=== PATIENT | male | born 1975 | race Two or more races ===

== ENCOUNTER 2021-08-22 09:17 | Emergency (ER) | payer OTHER, SELFPAY ==
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
[2021-08-22 09:22] VITALS: BP 105/67; PULSE 88; RESP 12; TEMP 36.6; O2SAT 98; BMI 23.5
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
== END 2021-08-22 11:09 | disposition home or self-care (01) ==
PROVIDERS: Emergency Provider Emergency Medicine Emergency Medical Services; PCP Internal Medicine
DX: S39.012A Strain of muscle, fascia and tendon of lower back, initial encounter (principal); V43.52XA Car driver injured in collision with other type car in traffic accident, initial encounter; Y93.9 Activity, unspecified; Y92.410 Unspecified street and highway as the place of occurrence of the external cause; Y99.9 Unspecified external cause status; Z79.899 Other long term (current) drug therapy
CPT/HCPCS: 72100; 99283

== ENCOUNTER 2022-02-14 10:32 | Outpatient (REF) | payer OTHER, SELFPAY ==
[2022-02-14 11:14] LABS: COVID-19 Test Negative (Negative); IDNOW Serial# 16C4AD1C
== END 2022-02-14 10:33 | disposition home or self-care (01) ==
LOC: HO.LAB 10:32
PROVIDERS: Visit Provider Internal Medicine
DX: Z20.822 Contact with and (suspected) exposure to COVID-19 (principal)
CPT/HCPCS: 87635; C9803

== ENCOUNTER 2022-07-08 08:43 | Inpatient (IN) | payer OTHER, SELFPAY ==
--- NOTE | ~2022-07-08 | CT_ITS ---
EXAMINATION: CT ABDOMEN AND PELVIS WITHOUT CONTRAST CLINICAL INFORMATION: Flank pain. Hematuria. Question kidney stones. COMPARISON: None TECHNIQUE: Multidetector volumetric imaging was performed from the superior aspect of the liver through the pubic symphysis. Sagittal and coronal reformatted images were obtained on the technologist's workstation. This CT examination was performed using dose optimization techniques as appropriate, variously including the following: *Automated exposure control *Adjustment of mA and/or kV according to patient size (this includes techniques or standardized protocols for targeted exams where dose is matched to indication/reason for exam; i.e. extremities or head) *Use of iterative reconstruction technique DLP: 435 mGy-cm FINDINGS: LUNG BASES: The visualized lung bases are unremarkable. LIVER, GALLBLADDER, AND BILIARY TREE: The liver is normal in size, shape, and attenuation. No focal hepatic lesion or biliary ductal dilatation is present. The gallbladder is unremarkable with no evidence of radiopaque gallstones, gallbladder wall thickening, or obvious pericholecystic inflammatory changes. PANCREAS: Unremarkable. SPLEEN: Unremarkable. ADRENAL GLANDS: Unremarkable. KIDNEYS AND URETERS: The kidneys are normal in size, shape, and attenuation. No hydronephrosis, hydroureter, or calculi seen. No perinephric stranding. BLADDER: Limited distention. Bladder appears diffusely thick-walled with mild diffuse hazy perifascicular fat stranding. GASTROINTESTINAL TRACT: Moderate to large amount of formed stool throughout the nondilated colon. A few scattered colonic diverticuli. No evidence of acute diverticulitis. No dilated bowel loops. No bowel wall thickening. Normal appendix. No ascites or free air. ABDOMINAL WALL: Tiny fat-containing umbilical hernia. 1.5 cm low-density subdermal nodule in the left lateral flank on series 3-37, likely a sebaceous or epidermal inclusion cyst. Correlate with exam. LYMPH NODES: No lymphadenopathy. VASCULAR: Normal caliber abdominal aorta. Mild vascular calcifications. PELVIC VISCERA: Prostate gland is enlarged measuring approximately 4.9 x 3.9 x 5 cm in size. OSSEOUS STRUCTURES: No acute fracture or suspicious osseous lesion. Moderate degenerative disease at L5-S1. CT/CT abdomen pelvis wo IV con IMPRESSION: 1. No radiodense urinary tract calculi. No hydronephrosis. 2. Diffusely thick-walled appearance of the urinary bladder with mild hazy perifascicular fat stranding. Correlate clinically with signs or symptoms of cystitis and with urinalysis. 3. Prostatomegaly. 4. Moderate to large amount formed stool throughout the nondilated colon. Fleischner guidelines were followed.
[2022-07-08 09:28] VITALS: BP 127/66; PULSE 110; RESP 20; TEMP 36.1; O2SAT 100; BMI 22.8
[2022-07-08 10:00] LABS: Appearance Urine Clear; Color Urine Yellow; Glucose Urine UA Negative (Negative); Leukocyte Esterase Urine Moderate (2+) (Negative); Nitrite Urine Positive (Negative); PH 5.5 (5.0-9.0); Specific Gravity - Urine >= 1.030 (1.005-1.025); UMIC TRIGGER UACC YES; Urine Blood Small (1+) (Negative); Urine Ketones Trace mg/dL (Negative); Urine Protein 100 (2+) mg/dL (Neg-Trace)
[2022-07-08 10:06] LABS: Bacteria Urine 2+ (None Seen); Hyaline Casts Urine 0-2 /LPF (0-2); Squamous Epithelial Cell Urine 0-2 /HPF (0-2); UACC Culture Trigger YES; WBC Urine >50 /HPF (0-5)
[2022-07-08 11:24] LABS: MANUAL DIFF FLAG NO
[2022-07-08 11:31] LABS: Basophils Absolute Auto 0.1 X10*3/uL (0.0-0.2); Basophils Percent Auto 0.3 % (0-2); Eosinophils Absolute Auto 0.1 X10*3/uL (0.0-0.4); Eosinophils Percent Auto 0.3 % (0-4); Hematocrit 40.6 % (42.0-52.0); Hemoglobin 13.8 g/dl (14.0-18.0); Imm Gran Abs Auto 0.06 X10*3/uL (0.00-0.03); Imm Gran Pct Auto 0.3 % (0.0-0.4); Lymphocytes Absolute Auto 1.1 X10*3/uL (1.2-4.9); Lymphocytes Percent Auto 6.2 % (20-40); Mean Corpuscular Hemoglobin 29.7 pg (27.0-33.0); Mean Corpuscular Volume 87.3 fL (80.0-98.0); Monocytes Absolute Auto 1.4 X10*3/uL (0.1-1.2); Monocytes Percent Auto 7.5 % (2-11); Neutrophils Absolute Auto 15.3 x10*3/uL (2.0-8.3); Neutrophils Percent Auto 85.4 % (45-73); Platelet Count 191 X10*3/uL (160-400); Red Blood Count 4.65 X10*6/uL (4.60-5.80); Red Cell Distribution Width 12.5 % (11.0-16.0); White Blood Count 17.9 X10*3/uL (4.8-10.8)
[2022-07-08 11:45] LABS: Anion Gap 14 (12-20); Blood Urea Nitrogen 17 mg/dL (9-16); Calcium 9.3 mg/dL (8.4-10.2); Carbon Dioxide 25 mmol/L (22-29); Chloride 100 mmol/L (96-108); Creatinine Clr Calc Pharmacy 86.9; Estimated Glomerular Filt Rate > 60; Glucose Random 98 mg/dL (60-115); Potassium 4.1 mmol/L (3.3-5.1); Sodium 135 mmol/L (135-145)
--- NOTE | 2022-07-08 12:36 | PC.NURSE ---
PT IN WAITING ROOM EATING , APPEARS MORE COMFORTABLE AT THIS TIME
--- NOTE | 2022-07-08 13:06 | ED_ITS ---
HPI - Male Genitourinary General Chief complaint: Urogenital-Male Stated complaint: fever/kidney stone/back pain Time Seen by Provider: 07/08/22 12:53 Source: patient Mode of arrival: ambulatory Limitations: no limitations History of Present Illness HPI Narrative: 47-year-old male presents to ED for RIght flank pain and mild hematuria since Monday. Patient denies any nausea vomiting, fever, chills. Patient denies any history kidney stones. Patient states no testicular pain or penile discharge. Related Data Previous Rx's Medication Instructions Recorded acetaminophen 500 mg tablet 1,000 mg PO QID PRN fever or pain 08/22/21 (Tylenol Extra Strength) #14 tabs diazepam 5 mg tablet (Valium) 5 mg PO TID PRN muscle spasm #14 08/22/21 tabs amoxicillin 875 mg-potassium 1 tab PO BID 10 days #20 tabs 03/31/22 clavulanate 125 mg tablet ibuprofen 800 mg tablet 800 mg PO Q8H PRN pain #14 tabs 03/31/22 oxycodone 5 mg capsule 5 mg PO DAILY PRN pain 5 days #5 03/31/22 caps Allergies Allergy/AdvReac Type Severity Reaction Status Date / Time No Known Allergies Allergy Unverified 06/18/20 15:15 Review of Systems Review of Systems: Flank pain with mild hematuria Yes all other systems are reviewed and are negative [facility] Past Medical History Medical History (Updated 07/08/22 @ 17:39 by DERIC Lazcano) BPH (benign prostatic hyperplasia) Complicated UTI (urinary tract infection) Sepsis Tooth infection Family History Family History (Updated 07/08/22 @ 17:24 by DERIC Cruz) Mother Multiple myeloma HTN (hypertension) Psychosis Social History Social History Alcohol intake: unknown Smoked in Last 30 Days: No Use of substances other than those prescribed or required for medical reasons: No Advance Directives: No Advance Directives Information Provided: No Physical Exam Vital Signs: Vital Signs: Last Vital Signs Temp 98.1 F 07/08/22 17:17 Pulse 92 07/08/22 17:17 Resp 18 07/08/22 17:17 BP 111/68 07/08/22 17:17 Pulse Ox 100 07/08/22 17:17 O2 Del Method 07/08/22 17:17 BMI result Body Mass Index 22.8 Const: General: cooperative, healthy appearing, comfortable, no acute distress, well developed, alert and awake Orientation/consciousness: oriented to person, oriented to place, oriented to time and patient oriented x3 HEENT: Head: Yes normal to inspection, Yes No palpable skull fracture present, Yes normocephalic, Yes atraumatic and No abrasion Eyes: General: appearance normal, both eyes and all related structures Neck: Neck: Yes normal visual inspection, Yes full ROM, Yes no lymphadenopathy, Yes no meningeal signs, Yes trachea midline, Yes supple, No anterior neck swelling and No tender Chest: Chest palpation & inspection: normal inspection of the chest and normal palpation of entire chest wall Resp: Effort & Inspection: normal respiratory effort and able to speak in complete sentences Auscultation: clear to auscultation bilaterally Cardio: Jugular venous distension: no JVD Heart sounds: S1 normal heart sound present and S2 normal heart sound present GI: Inspection: Yes normal to inspection and No abdominal wall ecchymosis Palpation (GI): Soft to palpation, not firm, nontender, no guarding and not rigid : General: Yes CVA tenderness (Right) and Yes no CVA tenderness Back/Spine/Pelvis: Back: no CVA tenderness, CVA tenderness (Right) and No back tenderness Skin: General skin exam: no rashes or lesions noted and elasticity normal Neuro: General: oriented to person, oriented to place, oriented to time, patient oriented x3, gait normal, tone normal, moves all extremities and no meningeal signs Extrem: General: Yes normal to inspection and Yes full ROM Psych: Appearance: grossly normal, well kempt and not disheveled Course Course Course Narrative: Labs ordered. Reevaluation(s) Reevaluation #1: Labs shows white blood cell count [id number] with positive UA. Antibiotics and fluids ordered. Patient is sent for abdominal CT scan to rule out kidney stones Time: 13:30 Reevaluation #2: Patient admits to hospital for pyelonephritis and UTI. White blood cell count of 17,000 with tachycardia. Lactic negative Time: 17:38 MDM - Male Genitourinary MDM Narrative Medical decision making narrative: pylonephritis. UTI Lab Data Result diagrams: 07/08/22 11:21 07/08/22 11:21 Labs: Lab Results 07/08/22 07/08/22 07/08/22 Range/Units 09:47 11:21 11:21 WBC 17.9 H (4.8-10.8) X10*3/uL RBC 4.65 (4.60-5.80) X10*6/uL Hgb 13.8 L (14.0-18.0) g/dl Hct 40.6 L (42.0-52.0) % MCV 87.3 (80.0-98.0) fL MCH 29.7 (27.0-33.0) pg MCHC 34.0 (31.0-36.0) g/dl RDW 12.5 (11.0-16.0) % Plt Count 191 (160-400) X10*3/uL MPV 11.0 (9.4-12.4) fL Immature Gran % (Auto) 0.3 (0.0-0.4) % Neut % (Auto) 85.4 H (45-73) % Lymph % (Auto) 6.2 L (20-40) % George % (Auto) 7.5 (2-11) % Eos % (Auto) 0.3 (0-4) % Baso % (Auto) 0.3 (0-2) % Lymph # (Auto) 1.1 L (1.2-4.9) X10*3/uL George # (Auto) 1.4 H (0.1-1.2) X10*3/uL Eos # (Auto) 0.1 (0.0-0.4) X10*3/uL Baso # (Auto) 0.1 (0.0-0.2) X10*3/uL Abs Immat Gran (auto) 0.06 H (0.00-0.03) X10*3/uL Absolute Neuts (auto) 15.3 H (2.0-8.3) x10*3/uL Absolute Nucleated RBC 0.000 (0.0-0.012) X10*3/uL Nucleated RBC % (auto) 0.0 (0.0-0.2) /100WBC Sodium 135 (135-145) mmol/L Potassium 4.1 (3.3-5.1) mmol/L Chloride 100 (96-108) mmol/L Carbon Dioxide 25 (22-29) mmol/L Anion Gap 14 (12-20) BUN 17 H (9-16) mg/dL Creatinine 1.00 (0.5-1.4) mg/dL Estim Creat Clear Calc 86.9 Estimated GFR > 60 Random Glucose 98 (60-115) mg/dL Lactic Acid (0.5-2.0) mmol/L Calcium 9.3 (8.4-10.2) mg/dL Urine Color Yellow Urine Appearance Clear Urine pH 5.5 (5.0-9.0) Ur Specific [place] >= 1.030 H (1.005-1.025) Urine Protein 100 (2+) H (Neg-Trace) mg/dL Urine Glucose (UA) Negative (Negative) mg/dL Urine Ketones Trace (Negative) mg/dL Urine Blood Small (1+) H (Negative) Urine Nitrite Positive H (Negative) Ur Leukocyte Esterase Moderate (2+) H (Negative) Urine RBC 3-5 H (0-2) /HPF Urine WBC >50 H (0-5) /HPF Ur Squamous Epith Cells 0-2 (0-2) /HPF Urine Bacteria 2+ (None Seen) Hyaline Casts 0-2 (0-2) /LPF COVID-19 ([facility]) (Negative) COVID-19 Clin Com 07/08/22 07/08/22 Range/Units 13:26 13:26 WBC (4.8-10.8) X10*3/uL RBC (4.60-5.80) X10*6/uL Hgb (14.0-18.0) g/dl Hct (42.0-52.0) % MCV (80.0-98.0) fL MCH (27.0-33.0) pg MCHC (31.0-36.0) g/dl RDW (11.0-16.0) % Plt Count (160-400) X10*3/uL MPV (9.4-12.4) fL Immature Gran % (Auto) (0.0-0.4) % Neut % (Auto) (45-73) % Lymph % (Auto) (20-40) % George % (Auto) (2-11) % Eos % (Auto) (0-4) % Baso % (Auto) (0-2) % Lymph # (Auto) (1.2-4.9) X10*3/uL George # (Auto) (0.1-1.2) X10*3/uL Eos # (Auto) (0.0-0.4) X10*3/uL Baso # (Auto) (0.0-0.2) X10*3/uL Abs Immat Gran (auto) (0.00-0.03) X10*3/uL Absolute Neuts (auto) (2.0-8.3) x10*3/uL Absolute Nucleated RBC (0.0-0.012) X10*3/uL Nucleated RBC % (auto) (0.0-0.2) /100WBC Sodium (135-145) mmol/L Potassium (3.3-5.1) mmol/L Chloride (96-108) mmol/L Carbon Dioxide (22-29) mmol/L Anion Gap (12-20) BUN (9-16) mg/dL Creatinine (0.5-1.4) mg/dL Estim Creat Clear Calc Estimated GFR Random Glucose (60-115) mg/dL Lactic Acid 1.0 (0.5-2.0) mmol/L Calcium (8.4-10.2) mg/dL Urine Color Urine Appearance Urine pH (5.0-9.0) Ur Specific [place] (1.005-1.025) Urine Protein (Neg-Trace) mg/dL Urine Glucose (UA) (Negative) mg/dL Urine Ketones (Negative) mg/dL Urine Blood (Negative) Urine Nitrite (Negative) Ur Leukocyte Esterase (Negative) Urine RBC (0-2) /HPF Urine WBC (0-5) /HPF Ur Squamous Epith Cells (0-2) /HPF Urine Bacteria (None Seen) Hyaline Casts (0-2) /LPF COVID-19 ([facility]) Negative (Negative) COVID-19 Clin Com See Note Discharge Plan Discharge Clinical Impression: Complicated UTI (urinary tract infection) Patient Disposition: Admitted As Inpatient 1 tab PO BID 10 Days Qty: 20 0RF oxycodone 5 mg capsule 5 mg PO DAILY PRN (Reason: pain) 5 Days Qty: 5 0RF Rx Instructions: Partial Fill upon patient request.
[2022-07-08 13:31] VITALS: BP 113/68; PULSE 99; RESP 18; TEMP 36.7; O2SAT 100
[2022-07-08] MEDS: 0.9 % Sodium Chloride 1,000 ML 999 ML IV (13:33)
[2022-07-08] MEDS: Ketorolac Tromethamine 30 MG/ML VIAL IVPUSH (13:33)
[2022-07-08] MEDS: cefTRIAXone sodium 1 GM in 0.9 % Sodium Chloride 50 ML IV (13:35)
[2022-07-08 13:46] LABS: COVID-19 Test Negative (Negative)
--- NOTE | 2022-07-08 17:16 | PM.IMHP ---
History of Present Illness Date of Service: 07/08/22 Attending physician on admission: Fe Gary Chief Complaint: dysuria, flank pain [age] year old male with history of recent dental abscess treated with Augmentin who is a 1/2 ppd cigarette smoker presents to the ED earlier today complaining of bilateral low back pain, dysuria, hematuria, nocturia, and decreased urinary output ongoing for 2 days. He states he has never had similar symptoms. Denies any history of kidney stones. Denies any unsafe sexual encounters recently. He states symptoms have somewhat improved yesterday and today and urine is now clear. He denies having had any fevers, chills, nausea, vomiting. Denies perineal pain. In the ED, white blood cell count 17.9. UA with 2+ leukocytes, nitrate positive, 2+ bacteria, 1+ blood. Lactic acid 1.0. Renal fx and electrolytes stable. Afebrile but tachycardic to 110. Vital signs otherwise stable. CT of the abdomen/pelvis shows thickening of the bladder wall with stranding suggestive of cystitis with prostatomegaly. No evidence of stones or hydronephrosis. Ct also shows large stool burden. Patient reports no BM several days. No abdominal pain. Patient has received 1 L bolus normal saline, IV ceftriaxone, and pain meds. To be admitted for UTI with sepsis. Review of Systems Review of Systems: General: No fevers, malaise, unintentional weight loss Cardiovascular: No chest pain, palpitations, or leg edema Respiratory: No shortness of breath, wheezing, cough GI: +constipation. No abdominal pain, nausea, vomiting, diarrhea, melena, hematochezia Gu: +dysuria, +hematuria, +urgency, +decreased urinary output, +nocturia MSK: +b/l low back pain Neuro: No headaches, weakness, paresthesias Skin: No rashes or lesions [facility] Medical History (Updated 07/08/22 @ 17:39 by DERIC Lazcano) BPH (benign prostatic hyperplasia) Complicated UTI (urinary tract infection) Sepsis Tooth infection Family History (Updated 07/08/22 @ 17:24 by DERIC Cruz) Mother Multiple myeloma HTN (hypertension) Psychosis Social History Alcohol intake: unknown Smoked in Last 30 Days: No Use of substances other than those prescribed or required for medical reasons: No Advance Directives: No Advance Directives Information Provided: No Meds Allergies Allergy/AdvReac Type Severity Reaction Status Date / Time No Known Allergies Allergy Unverified 06/18/20 15:15 Active Medications: Current Medications Acetaminophen (Acetaminophen 325 Mg Tablet) 650 mg PO Q6H PRN PRN Reason: Pain, Mild (Pain Scale 1-3) Enoxaparin Sodium (Enoxaparin Sodium 40 Mg/0.4 Ml Syringe) 40 mg SUBCUT Q24H ALIZE Hydromorphone HCl (Hydromorphone Hcl 1 Mg/Ml Syringe) 0.5 mg IVPUSH Q4H PRN; Protocol PRN Reason: Pain, Severe (Pain Scale 7-10) Ceftriaxone Sodium 1 gm/ (Sodium Chloride) 50 mls @ 100 mls/hr IV Q24H ALIZE Oxycodone HCl (Oxycodone Hcl Immed Release 5 Mg Tablet) 5 mg PO Q6H PRN PRN Reason: Pain, Moderate (Pain Scale 4-6 Sodium Chloride (0.9 % Sodium Chloride Flush 3 Ml Syringe) 3 ml IVFLUSH QSHIFT ALIZE Physical Exam Vital Signs and Narrative: Vital Signs: Last Vital Signs Temp 98.1 F 07/08/22 13:31 Pulse 99 07/08/22 13:31 Resp 18 07/08/22 13:31 BP 113/68 07/08/22 13:31 Pulse Ox 100 07/08/22 13:31 O2 Del Method 07/08/22 13:31 BMI result Body Mass Index 22.8 Constitutional - Awake and Alert, No apparent distress Eyes - PERRLA, EOMI Cardiovascular - S1S2, RRR, No edema Respiratory - Normal lung expansion, Normal respiratory effort, No respiratory distress, CTA bilaterally Gastrointestinal - NT / ND; +BS; No rebound or guarding Rectal: No external hemorrhoids. No palpable internal hemorrhoids. Rectal tone appropriate. Symmetric 2+ enlargement prostate without tenderness Extremities - no calf tenderness bilaterally, no swelling Back: No CVA tenderness. No midline or paraspinal ttp Skin - Warm/Dry Neurological - Alert & oriented x3, Sensory or motor in tact Psychological - Appropriate affect Results Labs CBC and Chem 7: 07/08/22 11:21 07/08/22 11:21 Labs: Laboratory Results - last 24 hr 07/08/22 07/08/22 07/08/22 09:47 11:21 11:21 MCV 87.3 MCH 29.7 MCHC 34.0 RDW 12.5 Plt Count 191 MPV 11.0 Immature Gran % (Auto) 0.3 Neut % (Auto) 85.4 H Lymph % (Auto) 6.2 L [place] % (Auto) 7.5 Eos % (Auto) 0.3 Baso % (Auto) 0.3 Lymph # (Auto) 1.1 L [place] # (Auto) 1.4 H Eos # (Auto) 0.1 Baso # (Auto) 0.1 Abs Immat Gran (auto) 0.06 H Absolute Neuts (auto) 15.3 H Absolute Nucleated RBC 0.000 Nucleated RBC % (auto) 0.0 Anion Gap 14 Estim Creat Clear Calc 86.9 Estimated GFR > 60 Random Glucose 98 Lactic Acid Calcium 9.3 Urine Color Yellow Urine Appearance Clear Urine pH 5.5 Ur Specific [place] >= 1.030 H Urine Protein 100 (2+) H Urine Glucose (UA) Negative Urine Ketones Trace Urine Blood Small (1+) H Urine Nitrite Positive H Ur Leukocyte Esterase Moderate (2+) H Urine RBC 3-5 H Urine WBC >50 H Ur Squamous Epith Cells 0-2 Urine Bacteria 2+ Hyaline Casts 0-2 COVID-19 ([facility]) COVID-19 Clin Com 07/08/22 07/08/22 13:26 13:26 MCV MCH MCHC RDW Plt Count MPV Immature Gran % (Auto) Neut % (Auto) Lymph % (Auto) [place] % (Auto) Eos % (Auto) Baso % (Auto) Lymph # (Auto) [place] # (Auto) Eos # (Auto) Baso # (Auto) Abs Immat Gran (auto) Absolute Neuts (auto) Absolute Nucleated RBC Nucleated RBC % (auto) Anion Gap Estim Creat Clear Calc Estimated GFR Random Glucose Lactic Acid 1.0 Calcium Urine Color Urine Appearance Urine pH Ur Specific [place] Urine Protein Urine Glucose (UA) Urine Ketones Urine Blood Urine Nitrite Ur Leukocyte Esterase Urine RBC Urine WBC Ur Squamous Epith Cells Urine Bacteria Hyaline Casts COVID-19 ([facility]) Negative COVID-19 Clin Com See Note Imaging Radiologist's Impressions: Impressions Abdomen/Pelvis CT 07/08/22 13:45 IMPRESSION: 1. No radiodense urinary tract calculi. No hydronephrosis. 2. Diffusely thick-walled appearance of the urinary bladder with mild hazy perifascicular fat stranding. Correlate clinically with signs or symptoms of cystitis and with urinalysis. 3. Prostatomegaly. 4. Moderate to large amount formed stool throughout the nondilated colon. Fleischner guidelines were followed. Assessment and Plan (1) Complicated UTI (urinary tract infection): Status: Acute (2) Sepsis: Status: Acute Plan [age] year old male with history of recent dental abscess treated with Augmentin who is a 1/2 ppd cigarette smoker admitted for complicated UTI with sepsis. 1-Sepsis secondary to UTI -Tachycardic to 110, leukocytosis 17.9. Lactic acid normal. No severe sepsis -Received 1L NS bolus and 1g ceftriaxone in ED -Urine culture and blood cultures pending -Follow CBC 2-Complicated UTI -UA with 2+leuks, nitrite+, 1+blood, 2+bacteria. Urine culture pending -CT showing thickened bladder wall with fat stranding suggestive cystitis and prostatamegaly. Low suspicion for prostatitis given history and exam -Pt afebrile. Sepsis as above -Treat empirically with ceftriaxone -Follow CBC -Regular diet 3-BPH with LUTS -Start flomax 0.4mg daily -Follow up outpt with pcp, possibly urology 4-Nicotine dependence -1/2 ppd cigarettes -NRT ordered DVT prophylaxis- lovenox Full code Pt requires inpt stay at least 2 midnights due to complicated UTI with sepsis requiring IV abx and further monitoring. Quality Stroke Does the patient have a stroke diagnosis?: No VTE Prior VTE?: No VTE Risk Level:: Medical - moderate - high VTE Device Contraindication: Treatment Not Indicated VTE Drug Contraindication: N/A - Med Ordered
[2022-07-08 17:17] VITALS: BP 111/68; PULSE 92; RESP 18; TEMP 36.7; O2SAT 100
--- NOTE | 2022-07-08 17:28 | PC.NURSE ---
Assumed care of patient at this time.
--- NOTE | 2022-07-08 18:05 | PHA.MEDREC ---
med rec complete, patient not on any medications Pharmacy Consult ? Medication Reconciliation Pharmacy has completed the medication reconciliation.
[2022-07-08] MEDS: Enoxaparin Sodium 40 MG/0.4 ML SYRINGE SUBCUT (21:40)
[2022-07-08] MEDS: 0.9 % Sodium Chloride Flush 3 ML SYRINGE IVFLUSH (21:40)
[2022-07-08] MEDS: Docusate Sodium 100 MG CAPSULE PO (21:40)
[2022-07-08 23:36] VITALS: BP 111/62; PULSE 82; RESP 16; TEMP 36.7; O2SAT 99
[2022-07-09 04:00] VITALS: BP 97/63; PULSE 75; RESP 18; TEMP 36.4; O2SAT 100
[2022-07-09 06:57] LABS: MANUAL DIFF FLAG NO
[2022-07-09 07:13] LABS: Basophils Absolute Auto 0.1 X10*3/uL (0.0-0.2); Basophils Percent Auto 0.5 % (0-2); Eosinophils Absolute Auto 0.2 X10*3/uL (0.0-0.4); Eosinophils Percent Auto 1.6 % (0-4); Hematocrit 38.2 % (42.0-52.0); Hemoglobin 13.3 g/dl (14.0-18.0); Imm Gran Abs Auto 0.03 X10*3/uL (0.00-0.03); Imm Gran Pct Auto 0.3 % (0.0-0.4); Lymphocytes Absolute Auto 1.2 X10*3/uL (1.2-4.9); Lymphocytes Percent Auto 12.2 % (20-40); Mean Corpuscular HGB Conc 34.8 g/dl (31.0-36.0); Mean Corpuscular Hemoglobin 30.2 pg (27.0-33.0); Mean Corpuscular Volume 86.6 fL (80.0-98.0); Mean Platelet Volume 11.8 fL (9.4-12.4); Monocytes Percent Auto 9.9 % (2-11); Neutrophils Absolute Auto 7.4 x10*3/uL (2.0-8.3); Neutrophils Percent Auto 75.5 % (45-73); Platelet Count 168 X10*3/uL (160-400); Red Blood Count 4.41 X10*6/uL (4.60-5.80); Red Cell Distribution Width 12.5 % (11.0-16.0); White Blood Count 9.8 X10*3/uL (4.8-10.8)
[2022-07-09 07:45] VITALS: BP 105/72; PULSE 73; RESP 14; TEMP 36.1; O2SAT 99
[2022-07-09] MEDS: Docusate Sodium 100 MG CAPSULE PO (09:12)
[2022-07-09] MEDS: Tamsulosin HCL 0.4 MG CAPSULE PO (09:12)
[2022-07-09] MEDS: 0.9 % Sodium Chloride Flush 3 ML SYRINGE IVFLUSH (09:13)
--- NOTE | 2022-07-09 10:08 | MHC.CM.PN ---
Patient lives alone in an apartment and home no services is the goal. Patient has received no Covid vax and his PCP is Dr. Joni Fallon. Patient's Daughter is supportive.
[2022-07-09 12:32] VITALS: BP 110/65; PULSE 83; RESP 14; TEMP 36.3; O2SAT 99
[2022-07-09] MEDS: cefTRIAXone sodium 1 GM in 0.9 % Sodium Chloride 50 ML IV (13:08)
--- NOTE | 2022-07-09 14:07 | PM.DS ---
DS: Providers Provider Date of Service: 07/10/22 Date of admission: 07/08/22 17:13 Primary care physician: Joni Fallon MD DS: Diagnosis Discharge Diagnosis (1) Complicated UTI (urinary tract infection): Status: Acute (2) Sepsis: Status: Acute DS: Summary Hospital Course Hospital Course: Admission note HPI [age] year old male with history of recent dental abscess treated with Augmentin who is a 1/2 ppd cigarette smoker presents to the ED earlier today complaining of bilateral low back pain, dysuria, hematuria, nocturia, and decreased urinary output ongoing for 2 days.? He states he has never had similar symptoms.? Denies any history of kidney stones.? Denies any unsafe sexual encounters recently.? He states symptoms have somewhat improved yesterday and today and urine is now clear.? He denies having had any fevers, chills, nausea, vomiting.? Denies perineal pain.? In the ED, white blood cell count 17.9.? UA with 2+ leukocytes, nitrate positive, 2+ bacteria, 1+ blood.? Lactic acid 1.0. Renal fx and electrolytes stable. Afebrile but tachycardic to 110.? Vital signs otherwise stable.? CT of the abdomen/pelvis shows thickening of the bladder wall with stranding suggestive of cystitis with prostatomegaly.? No evidence of stones or hydronephrosis. Ct also shows large stool burden. Patient reports no BM several days. No abdominal pain.? Patient has received 1 L bolus normal saline, IV ceftriaxone, and pain meds.? To be admitted for UTI with sepsis. Hospital course The patient was admitted for treatment of sepsis. CT scan was negative for any stones. Showed evidence of stranding of bladder wall suggestive of cystitis and enlarged prostate. Treated with IV antibiotic of ceftriaxone with good response as WBCs improved back to normal, pain resolved. Urine culture growing Gram-negative rods. Blood cultures remain negative after 24 hours. The patient as to be discharged home as he feels much better today. Will let him go and follow his blood cultures to be finalized with plan to finish total of 10 days of antibiotic of Ceftin and to follow-up with Urology as outpatient. Start tamsulosin for enlarged prostate To be discharged home on Ceftin to finish total antibiotic of 10 days To follow with Urology as outpatient. Referral made. Please call for appointment. Time Spent with Patient Time attestation: Total time spent providing and/or coordinating discharge services: Discharge coordination time: Greater than 30 minutes Quality: Safe Use of Opioids Does Pt have an Active Cancer Diagnosis on the Problem List?: No Quality: Stroke Does the patient have a stroke diagnosis?: No Physical Exam Vital Signs: Vital Signs: Last Vital Signs Temp 97.4 F 07/09/22 12:32 Pulse 83 07/09/22 12:32 Resp 14 07/09/22 12:32 BP 110/65 07/09/22 12:32 Pulse Ox 99 07/09/22 12:32 O2 Del Method 07/09/22 12:32 BMI result Body Mass Index 22.8 Const: Other: Constitutional : Alert, oriented, not in distress Neck : Normal inspection, Supple Cardiovascular : RRR, no JVP, no lower extremity edema Respiratory : fair bilateral air entry, no crackles, wheezes or rhonchi Gastrointestinal: soft, lax, Normal bowel sounds, Non tender Skin : Warm, Dry Neurological : Alert & oriented x3, No focal deficit DS: Data Data Completed and Pending Labs on day of discharge: Laboratory Results - last 24 hr 07/09/22 06:25 WBC 9.8 RBC 4.41 L Hgb 13.3 L Hct 38.2 L MCV 86.6 MCH 30.2 MCHC 34.8 RDW 12.5 Plt Count 168 MPV 11.8 Immature Gran % (Auto) 0.3 Neut % (Auto) 75.5 H Lymph % (Auto) 12.2 L [place] % (Auto) 9.9 Eos % (Auto) 1.6 Baso % (Auto) 0.5 Lymph # (Auto) 1.2 [place] # (Auto) 1.0 Eos # (Auto) 0.2 Baso # (Auto) 0.1 Abs Immat Gran (auto) 0.03 Absolute Neuts (auto) 7.4 Absolute Nucleated RBC 0.000 Nucleated RBC % (auto) 0.0 Preliminary micro results at discharge 07/08/22 Unknown Urine Culture - Preliminary Urine clean catch - Urine mantilla top Gram negative lew Imaging CT scan - abdomen: Radiologist's impression: ITS Impressions Abdomen/Pelvis CT 07/08/22 13:45 IMPRESSION: 1. No radiodense urinary tract calculi. No hydronephrosis. 2. Diffusely thick-walled appearance of the urinary bladder with mild hazy perifascicular fat stranding. Correlate clinically with signs or symptoms of cystitis and with urinalysis. 3. Prostatomegaly. 4. Moderate to large amount formed stool throughout the nondilated colon. Fleischner guidelines were followed. Discharge Plan Discharge Anticipated Discharge Date/Time: 07/09/22 14:00 Patient Disposition: Home, Self-Care Discharge Diagnosis: Sepsis, urinary tract infection Referrals: Gloria Hicks MD [Physician] - 1 Month (Acute Cystitis, enlarged prostate with UTI for Krystyna recommendations) Joni Fallon MD [Primary Care Provider] - 1 Week Discharge Medications: New cefuroxime axetil 500 mg tablet 500 mg PO BID Qty: 16 0RF tamsulosin 0.4 mg Capsule 0.4 mg PO DAILY 30 Days Qty: 30 0RF Discharge Orders: Discharge Order (Routine); Ordered 07/09/22 Ordered By: Fe Gary Diet: Advance to usual diet Activity on Discharge: As tolerated Stand Alone Forms: Patient Portal Discharge page Care Plan Goals: Read below Health Concerns: Read below Plan of Treatment: Read below Assessment: You were admitted to the hospital for evaluation of urinary tract infection. Treated with IV antibiotic. Urine culture growing bacteria, still pending final sensitivity. Start tamsulosin for enlarged prostate To be discharged home on Ceftin to finish total antibiotic of 10 days To follow with Urology as outpatient. Referral made. Please call for appointment. Discharge Date/Time: 07/09/22 16:50
--- NOTE | 2022-07-09 14:33 | MHC.CM.PN ---
Patient has been medically cleared for dc to home today, self care.
[2022-07-09 14:59] LABS: Prostate Specific Antigen 15.65 ng/mL (<0.05-4.0)
== END 2022-07-09 16:50 | disposition home or self-care (01) | DRG 872 ==
LOC: HO.ED 17:39 → HO.EDOVER 18:11 → HO.IMC 07-09 15:51
PROVIDERS: Physician Assistant; Admitting Provider Physician Assistant; Emergency Provider Emergency Medicine Emergency Medical Services; PCP Family Medicine; Visit Provider Student in an Organized Health Care Education/Training Program
DX: A41.9 Sepsis, unspecified organism (principal); N30.91 Cystitis, unspecified with hematuria; N40.0 Benign prostatic hyperplasia without lower urinary tract symptoms; Z20.822 Contact with and (suspected) exposure to COVID-19; F17.210 Nicotine dependence, cigarettes, uncomplicated; Z71.6 Tobacco abuse counseling
CPT/HCPCS: 36415; 74176; 80048; 81001; 81003; 83605; 84153; 85025; 87040; 87086; 87088; 87186; 87635; 96361; 96374; 96375; 99285; J0696; J1650; J1885

== ENCOUNTER 2022-07-28 16:36 | Inpatient (IN) | payer OTHER, SELFPAY ==
--- NOTE | ~2022-07-28 | US_ITS ---
EXAMINATION: US SCROTUM CLINICAL INFORMATION: Testicular swelling on the right. COMPARISON: None TECHNIQUE: A sonogram of the scrotum was performed assessing mantilla-scale appearance and color Doppler flow. Spectral Doppler analysis of the arterial and venous flow were performed in the testes bilaterally. FINDINGS: The right testicle is measuring 3.6 x 2.9 x 3 cm. Volume 17 mL. Left testicle is measuring 4.7 x 2.3 x 3 cm. Volume 17 mL. Importantly the testicles are within normal limits. Echogenicity is felt to be equal bilaterally and there is arterial and venous flow. Findings suggest a few small epididymal head cysts on the right. Epididymis is mildly prominent on the right On the left excrescence off the testicle could represent an appendix testis. Outpatient Program Coordinator notes a probable right inguinal hernia. Orifice measuring 1.7 cm. US/US scrotum doppler IMPRESSION: Importantly the testicles are felt to be within there is a small hydrocele on the right and the inserting machine operator demonstrates findings which suggest a right inguinal herniation of omental fat. Correlation recommended clinically. Recommend surgical consultation. Given the appearance element of bowel involvement could not be excluded but this may be a loculated hydrocele on the right The epididymis on the right is mildly prominent. An element of epididymitis cannot be excluded.
--- NOTE | ~2022-07-28 | US_ITS ---
EXAMINATION: US SCROTUM CLINICAL INFORMATION: Testicular swelling on the right. COMPARISON: None TECHNIQUE: A sonogram of the scrotum was performed assessing mantilla-scale appearance and color Doppler flow. Spectral Doppler analysis of the arterial and venous flow were performed in the testes bilaterally. FINDINGS: The right testicle is measuring 3.6 x 2.9 x 3 cm. Volume 17 mL. Left testicle is measuring 4.7 x 2.3 x 3 cm. Volume 17 mL. Importantly the testicles are within normal limits. Echogenicity is felt to be equal bilaterally and there is arterial and venous flow. Findings suggest a few small epididymal head cysts on the right. Epididymis is mildly prominent on the right On the left excrescence off the testicle could represent an appendix testis. Cnc Maintenance Mechanic notes a probable right inguinal hernia. Orifice measuring 1.7 cm. US/US scrotum IMPRESSION: Importantly the testicles are felt to be within there is a small hydrocele on the right and the manager cosmetics demonstrates findings which suggest a right inguinal herniation of omental fat. Correlation recommended clinically. Recommend surgical consultation. Given the appearance element of bowel involvement could not be excluded but this may be a loculated hydrocele on the right The epididymis on the right is mildly prominent. An element of epididymitis cannot be excluded.
--- NOTE | ~2022-07-28 | CT_ITS ---
EXAMINATION: CT PELVIS WITHOUT CONTRAST CLINICAL INFORMATION: Rule out omental herniation in the right side of scrotum, pain COMPARISON: Scrotal ultrasound from earlier in the same day, CT abdomen and pelvis 07/08/2022 TECHNIQUE: Helical scanning was performed with submillimeter collimation through the pelvis. Sagittal and coronal multiplanar 2-D reconstructions were obtained. This CT examination was performed using dose optimization techniques as appropriate, variously including the following: *Automated exposure control *Adjustment of mA and/or kV according to patient size (this includes techniques or standardized protocols for targeted exams where dose is matched to indication/reason for exam; i.e. extremities or head) *Use of iterative reconstruction technique DLP: 359 mGy-cm FINDINGS: There is stranding along the right inguinal canal. There is no inguinal hernia. Heterogeneous hydroceles within the scrotum There is no enlarged lymphadenopathy by CT criteria. The bladder is relatively decompressed but demonstrates diffuse wall thickening, similar to the prior CT. Loops of bowel in the pelvis are unremarkable. Degenerative disc disease at L5-S1. CT/CT pelvis wo IV con IMPRESSION: No inguinal hernia. Moderate, heterogeneous hydroceles with stranding in the right inguinal canal.
[2022-07-28 16:38] VITALS: BP 107/70; PULSE 115; RESP 18; TEMP 37.2; O2SAT 99; BMI 24.3
[2022-07-28 16:59] LABS: Hematocrit 37.2 % (42.0-52.0); Hemoglobin 12.8 g/dl (14.0-18.0); Mean Corpuscular HGB Conc 34.4 g/dl (31.0-36.0); Mean Corpuscular Hemoglobin 30.5 pg (27.0-33.0); Mean Corpuscular Volume 88.6 fL (80.0-98.0); Mean Platelet Volume 10.9 fL (9.4-12.4); Platelet Count 226 X10*3/uL (160-400); Red Cell Distribution Width 12.6 % (11.0-16.0)
[2022-07-28 17:00] LABS: WBC ABN SCTR FOR CBC 1
[2022-07-28 17:00] LABS: Appearance Urine Clear; Color Urine Yellow; Glucose Urine UA Negative (Negative); Leukocyte Esterase Urine Trace (Negative); Nitrite Urine Negative (Negative); Specific Gravity - Urine <= 1.005 (1.005-1.025); UMIC TRIGGER UACC YES; Urine Blood Small (1+) (Negative); Urine Ketones Negative (Negative); Urine Protein Negative (Neg-Trace)
[2022-07-28 17:11] LABS: Bacteria Urine None Seen (None Seen); Hyaline Casts Urine 0-2 /LPF (0-2); RBC Urine 0-2 /HPF (0-2); Squamous Epithelial Cell Urine 0-2 /HPF (0-2); WBC Urine 0-5 /HPF (0-5)
[2022-07-28 17:12] LABS: COVID-19 Test Negative (Negative)
[2022-07-28 17:15] LABS: Alanine Aminotransferase 23 U/L (0-40); Albumin Level 3.9 g/dL (3.5-5.0); Alkaline Phosphatase 89 U/L (39-117); Anion Gap 15 (12-20); Aspartate Amino Transferase 31 U/L (5-37); Bilirubin Total 0.6 mg/dL (0.0-1.0); Blood Urea Nitrogen 15 mg/dL (9-16); Calcium 9.2 mg/dL (8.4-10.2); Carbon Dioxide 25 mmol/L (22-29); Chloride 101 mmol/L (96-108); Creatinine Clr Calc Pharmacy 86.1; Estimated Glomerular Filt Rate > 60; Glucose Random 107 mg/dL (60-115); Potassium 4.1 mmol/L (3.3-5.1); Sodium 137 mmol/L (135-145)
[2022-07-28 17:33] LABS: White Blood Count 23.2 X10*3/uL (4.8-10.8)
[2022-07-28 17:45] LABS: Band Neutrophils Percent 2 % (3-5); Eosinophils Absolute Manual 0.2 X10*3/uL (0.0-0.4); Eosinophils Percent Manual 1 % (0-4); Lymphocytes Absolute Manual 0.9 X10*3/uL (1.2-4.9); Lymphocytes Percent Manual 4 % (20-40); Monocytes Absolute Manual 1.9 X10*3/uL (0.1-1.2); Monocytes Percent Manual 8 % (2-11); Neutrophils Absolute Manual 20.2 X10*3/uL (2.0-8.3); Neutrophils Percent Manual 85 % (45-73)
[2022-07-28 17:46] LABS: Microcytosis 1+ (5-14) /OIF; Platelet Estimate SLIGHTLY DECREASED (NORMAL); Platelet Morphology Comment NORMAL; RBC Morphology NOTED
[2022-07-28 17:47] LABS: Burr Cells 1+ (0-2) /OIF; Dohle Bodies PRESENT; Hypochromasia 1+ (5-14) /OIF; Toxic Vacuolation PRESENT
--- NOTE | 2022-07-28 19:06 | ED_ITS ---
HPI - Male Genitourinary General Chief complaint: Urogenital-Male Stated complaint: possible uti Time Seen by Provider: 07/28/22 18:17 Source: patient Mode of arrival: ambulatory Limitations: no limitations History of Present Illness HPI Narrative: patient comes to the emergency room complaining of dysuria and right testicular pain. Patient was diagnosed with a UTI on July 08, sent home with antibiotics. Patient states that she initially improved. But then shortly after he started having symptoms over again. He went to urgent care yesterday, he was prescribed but it seems to be ciprofloxacin. Patient states that the dysuria has gradually gotten worse, now having intermittent hematuria, denies flank pain, complaining of suprapubic tenderness and what worries him the most, it is the right testicular pain and swelling. Related Data Previous Rx's Medication Instructions Recorded tamsulosin 0.4 mg capsule 0.4 mg PO DAILY 30 days #30 caps 07/27/22 Allergies Allergy/AdvReac Type Severity Reaction Status Date / Time No Known Allergies Allergy Unverified 07/27/22 12:50 Review of Systems Review of Systems: Constitutional : No Weight loss, No Fever, No Chills, No Night Sweats, No Fatigue, No Malaise ENT/Mouth : No Hearing loss, No Ear Pain, No Nasal Congestion, No Sinus Pain, No Hoarseness, No sore throat, No Rhinorrhea, No Swallowing Difficulty Eyes: No Eye Pain, No Swelling, No Redness, No Foreign Body, No Discharge, No Vision Changes Cardiovascular : No Chest Pain, No SOB, No Dyspnea on Exertion, No Orthopnea, No Edema, No Palpitations Respiratory : No Cough, No Sputum, No Wheezing, No Smoke Exposure, No Dyspnea Gastrointestinal : No Nausea, No Vomiting, No Diarrhea, No Constipation, No abdominal Pain, No Hematochezia, No Melena Genitourinary : no irregular bleeding, Complaining of dysuria, hematuria, suprapubic pain, complaining of right testicular pain and swelling, denies penile discharge No Urinary Incontinence, No Urgency, No Flank Pain, No Urinary Flow Changes, No Hesitancy Musculoskeletal : No joint pain, No Myalgias, No Joint Swelling Skin : No Skin Lesions, No rash Neuro : No Weakness, No Numbness, No Paresthesias, No Loss of Consciousness, No Dizziness, No Headache Psych : No Anxiety/Panic, No Depression, No SI/HI/AH/VH, No Social Issues, Heme/Lymph: No Bruising, No Bleeding,No Lymphadenopathy Endocrine : No Polyuria, No Polydipsia, No Temperature Intolerance [facility] Past Medical History Medical History BPH (benign prostatic hyperplasia) Complicated UTI (urinary tract infection) Sepsis Tooth infection Family History Family History (Updated 07/08/22 @ 17:24 by DERIC Cruz) Mother Multiple myeloma HTN (hypertension) Psychosis Social History Social History Alcohol intake: never Patient Tobacco Use Status: Current everyday Tobacco user Use of substances other than those prescribed or required for medical reasons: Yes Substance Use Type: Marijuana Substance Use Frequency: Daily Last Used Substance: Hours (ago) Advance Directives: No Advance Directives Information Provided: No service: No Current occupational status: employed Physical Exam Vital Signs: Vital Signs: Last Vital Signs Temp 99.1 F 07/28/22 19:45 Pulse 115 H 07/28/22 19:45 Resp 22 H 07/28/22 19:45 BP 105/64 07/28/22 19:45 Pulse Ox 98 07/28/22 19:45 O2 Del Method 07/28/22 19:45 BMI result Body Mass Index 24.3 Const: Other: Appearance: Alert. Oriented X3. No acute distress. Eyes: Pupils equal, round and reactive to light. ENT: Pharynx normal. Neck: Normal inspection. Neck supple. No lymph nodes noted. No crepitus CVS: Normal heart rate and rhythm. Pulses normal. Normal S1 and S2 Respiratory: No respiratory distress. Breath sounds normal. No Wheezing. No rales Abdomen: soft, mild suprapubic discomfort,No rigidity. No distention. : no penile discharge, right side of the scrotum is erythematous, painful to touch, warm, the testicle on the right side seems enlarged. No openings in the skin or drainage, Yoni's gangrene is not suspected Skin: Skin warm and dry. Normal skin color. Normal skin turgor. Extremities: No lower extremity edema. No Lacerations. No Rash Neuro: Oriented X 3. No motor deficit. No sensory deficit. Moving all extremities. No slurred speech. CN 2 through 12 grossly intact Psych: calm, cooperative, normal affect Course Course Course Narrative: patient has had multiple courses of antibiotics for UTI. Reviewing patient's urine sensitivities for urine culture, unfortunately he has ESBL, only sensitive to ertapenem. I discussed with the patient that given that he has UTI symptoms and they are starting all over again, and has history of UTI sepsis , I would recommend to start ertapenem IV, get him admitted. Patient agreeable to plan. Since the patient has epididymitis, cannot be ruled out. Patient already being treated with ertapenem. Gonorrhea/ chlamydia serology pending. CT scan was ordered to rule out an inguinal hernia. I discussed the patient with Dr. Peña, Patient being admitted MDM - Male Genitourinary Lab Data Result diagrams: 07/28/22 16:48 07/28/22 16:48 Labs: Lab Results 07/28/22 07/28/22 07/28/22 Range/Units 16:45 16:48 16:48 WBC 23.2 H (4.8-10.8) X10*3/uL RBC 4.20 L (4.60-5.80) X10*6/uL Hgb 12.8 L (14.0-18.0) g/dl Hct 37.2 L (42.0-52.0) % MCV 88.6 (80.0-98.0) fL MCH 30.5 (27.0-33.0) pg MCHC 34.4 (31.0-36.0) g/dl RDW 12.6 (11.0-16.0) % Plt Count 226 D (160-400) X10*3/uL MPV 10.9 (9.4-12.4) fL Immature Gran % (Auto) Cancelled Neut % (Auto) Cancelled Lymph % (Auto) Cancelled [place] % (Auto) Cancelled Eos % (Auto) Cancelled Baso % (Auto) Cancelled Lymph # (Auto) Cancelled [place] # (Auto) Cancelled Eos # (Auto) Cancelled Baso # (Auto) Cancelled Abs Immat Gran (auto) Cancelled Absolute Neuts (auto) Cancelled Absolute Nucleated RBC 0.000 (0.0-0.012) X10*3/uL Nucleated RBC % (auto) 0.0 (0.0-0.2) /100WBC Neutrophils % (Manual) 85 H (45-73) % Band Neutrophils % 2 L (3-5) % Lymphocytes % (Manual) 4 L (20-40) % Monocytes % (Manual) 8 (2-11) % Eosinophils % (Manual) 1 (0-4) % Abs Neuts (Manual) 20.2 H (2.0-8.3) X10*3/uL Lymphocytes # (Manual) 0.9 L (1.2-4.9) X10*3/uL Monocytes # (Manual) 1.9 H (0.1-1.2) X10*3/uL Eosinophils # (Manual) 0.2 (0.0-0.4) X10*3/uL Toxic Vacuolation PRESENT Dohle Bodies PRESENT Platelet Estimate SLIGHTLY DECREASED (NORMAL) Plt Morphology Comment NORMAL RBC Morphology NOTED Hypochromasia 1+ (5-14) /OIF Microcytosis 1+ (5-14) /OIF [place] Cells 1+ (0-2) /OIF Sodium 137 (135-145) mmol/L Potassium 4.1 (3.3-5.1) mmol/L Chloride 101 (96-108) mmol/L Carbon Dioxide 25 (22-29) mmol/L Anion Gap 15 (12-20) BUN 15 (9-16) mg/dL Creatinine 0.98 (0.5-1.4) mg/dL Estim Creat Clear Calc 86.1 Estimated GFR > 60 Random Glucose 107 (60-115) mg/dL Lactic Acid (0.5-2.0) mmol/L Calcium 9.2 (8.4-10.2) mg/dL Total Bilirubin 0.6 (0.0-1.0) mg/dL AST 31 (5-37) U/L ALT 23 (0-40) U/L Alkaline Phosphatase 89 (39-117) U/L Total Protein 7.0 (6.5-8.0) g/dL Albumin 3.9 (3.5-5.0) g/dL Urine Color Yellow Urine Appearance Clear Urine pH 6.0 (5.0-9.0) Ur Specific [place] <= 1.005 (1.005-1.025) Urine Protein Negative (Neg-Trace) mg/dL Urine Glucose (UA) Negative (Negative) mg/dL Urine Ketones Negative (Negative) mg/dL Urine Blood Small (1+) H (Negative) Urine Nitrite Negative (Negative) Ur Leukocyte Esterase Trace H (Negative) Urine RBC 0-2 (0-2) /HPF Urine WBC 0-5 (0-5) /HPF Ur Squamous Epith Cells 0-2 (0-2) /HPF Urine Bacteria None Seen (None Seen) Hyaline Casts 0-2 (0-2) /LPF COVID-19 ([facility]) (Negative) COVID-19 Clin Com 07/28/22 07/28/22 Range/Units 16:48 19:42 WBC (4.8-10.8) X10*3/uL RBC (4.60-5.80) X10*6/uL Hgb (14.0-18.0) g/dl Hct (42.0-52.0) % MCV (80.0-98.0) fL MCH (27.0-33.0) pg MCHC (31.0-36.0) g/dl RDW (11.0-16.0) % Plt Count (160-400) X10*3/uL MPV (9.4-12.4) fL Immature Gran % (Auto) Neut % (Auto) Lymph % (Auto) [place] % (Auto) Eos % (Auto) Baso % (Auto) Lymph # (Auto) [place] # (Auto) Eos # (Auto) Baso # (Auto) Abs Immat Gran (auto) Absolute Neuts (auto) Absolute Nucleated RBC (0.0-0.012) X10*3/uL Nucleated RBC % (auto) (0.0-0.2) /100WBC Neutrophils % (Manual) (45-73) % Band Neutrophils % (3-5) % Lymphocytes % (Manual) (20-40) % Monocytes % (Manual) (2-11) % Eosinophils % (Manual) (0-4) % Abs Neuts (Manual) (2.0-8.3) X10*3/uL Lymphocytes # (Manual) (1.2-4.9) X10*3/uL Monocytes # (Manual) (0.1-1.2) X10*3/uL Eosinophils # (Manual) (0.0-0.4) X10*3/uL Toxic Vacuolation [place] Bodies Platelet Estimate (NORMAL) Plt Morphology Comment RBC Morphology Hypochromasia /OIF Microcytosis /OIF [place] Cells /OIF Sodium (135-145) mmol/L Potassium (3.3-5.1) mmol/L Chloride (96-108) mmol/L Carbon Dioxide (22-29) mmol/L Anion Gap (12-20) BUN (9-16) mg/dL Creatinine (0.5-1.4) mg/dL Estim Creat Clear Calc Estimated GFR Random Glucose (60-115) mg/dL Lactic Acid 0.7 (0.5-2.0) mmol/L Calcium (8.4-10.2) mg/dL Total Bilirubin (0.0-1.0) mg/dL AST (5-37) U/L ALT (0-40) U/L Alkaline Phosphatase (39-117) U/L Total Protein (6.5-8.0) g/dL Albumin (3.5-5.0) g/dL Urine Color Urine Appearance Urine pH (5.0-9.0) Ur Specific [place] (1.005-1.025) Urine Protein (Neg-Trace) mg/dL Urine Glucose (UA) (Negative) mg/dL Urine Ketones (Negative) mg/dL Urine Blood (Negative) Urine Nitrite (Negative) Ur Leukocyte Esterase (Negative) Urine RBC (0-2) /HPF Urine WBC (0-5) /HPF Ur Squamous Epith Cells (0-2) /HPF Urine Bacteria (None Seen) Hyaline Casts (0-2) /LPF COVID-19 ([facility]) Negative (Negative) COVID-19 Clin Com See Note Imaging Data CT scan of abdomen pelvis: Radiologist's impression: DLP: 359 mGy-cm FINDINGS: There is stranding along the right inguinal canal. There is no inguinal hernia. Heterogeneous hydroceles within the scrotum There is no enlarged lymphadenopathy by CT criteria. The bladder is relatively decompressed but demonstrates diffuse wall thickening, similar to the prior CT. Loops of bowel in the pelvis are unremarkable. Degenerative disc disease at L5-S1. CT/CT pelvis wo IV con IMPRESSION: No inguinal hernia. Moderate, heterogeneous hydroceles with stranding in the right inguinal canal.? Critical Care Time Critical Care Time Critical Care Time: Yes Total Critical Care Time: 30 Attestation: I have personally provided critical care time. Time includes review of lab data, radiology results, discussion with consultants, and monitoring for potential decompensation. Intervention performed as documented. Discharge Plan Discharge Clinical Impression: Urinary tract infection due to ESBL Klebsiella, Right testicular pain Patient Disposition: Admitted As Inpatient
[2022-07-28 19:10] VITALS: BP 110/63; PULSE 109; RESP 16; TEMP 37.7; O2SAT 98
[2022-07-28 19:45] VITALS: BP 105/64; PULSE 115; RESP 22; TEMP 37.3; O2SAT 98
--- NOTE | 2022-07-28 19:52 | PHA.MEDREC ---
MED REC COMPLETE, NO ISSUES Pharmacy Consult ? Medication Reconciliation Pharmacy has completed the medication reconciliation.
[2022-07-28] MEDS: Ertapenem Sodium 1 GM in 0.9 % Sodium Chloride 50 ML IV (20:09)
[2022-07-28] MEDS: Ketorolac Tromethamine 30 MG/ML VIAL IVPUSH (20:11)
[2022-07-28 20:12] LABS: Lactic Acid 0.7 mmol/L (0.5-2.0)
[2022-07-28 21:46] VITALS: BP 101/54; PULSE 109; RESP 16; TEMP 37.4; O2SAT 98
[2022-07-28] MEDS: Morphine Sulfate 2 MG/ML CARTRIDGE 1 MG IVPUSH (22:24)
[2022-07-28] MEDS: 0.9 % Sodium Chloride 2,109.21 ML 2109.21 ML IV (22:25)
[2022-07-28 22:28] VITALS: BP 93/55; PULSE 106; RESP 24; O2SAT 98
--- NOTE | 2022-07-28 23:02 | P.HPHOSP_ITS ---
History of Present Illness Date of Service: 07/28/22 Chief Complaint: Testicular pain This is a 47-year-old male with pertinent history of benign prostatic hyperplasia, tobacco use disorder who presents to the emergency department with complaints of testicular pain. Patient was recently admitted and discharged on 07/09 for sepsis due to cystitis. He was initiated on Rocephin at the time of admission and his leukocytosis improved and pain resolved. He was discharged on Ceftin. Patient states he completed antibiotic course and his symptoms improved although urine culture from that admission grew ESBL. Patient states he was doing fine until yesterday when he had sudden onset of testicular pain. He started having intense right testicular pain, radiating to right flank, intermittent and without any relieving factors. Also has been having hematuria, intermittent. He noticed his right testicle was swollen and tender. Patient did have chills at home but no documented temperature. Did have nausea but denies vomiting. Patient denies chest discomfort, palpitations, shortness of breath. No penile discharge In the emergency department testicular ultrasound was concerning for right sided epididymitis. Review of Systems Constitutional: Constitutional: Reports chills Cardiovascular: Cardiovascular: Reports no additional cardiovascular co mplaints Respiratory: Respiratory: Reports no additional respiratory complaints Gastrointestinal: Gastrointestinal: Reports no additional gastrointestinal complaints Genitourinary: Genitourinary: Reports testicular pain Musculoskeletal: Musculoskeletal: Reports no additional musculoskeletal complaints Neurologic: Reports system reviewed and no additional complaints, except as documented Psychiatric: Psychiatric: Reports no additional psychiatric complaints [facility] Medical History BPH (benign prostatic hyperplasia) Complicated UTI (urinary tract infection) Sepsis Tooth infection Family History Mother Multiple myeloma HTN (hypertension) Psychosis Social History Alcohol intake: never Patient Tobacco Use Status: Current everyday Tobacco user Use of substances other than those prescribed or required for medical reasons: Yes Substance Use Type: Marijuana Substance Use Frequency: Daily Last Used Substance: Hours (ago) Advance Directives: No Advance Directives Information Provided: No service: No Current occupational status: employed Meds Allergies Allergy/AdvReac Type Severity Reaction Status Date / Time No Known Allergies Allergy Unverified 07/27/22 12:50 Active Medications: Current Medications Acetaminophen (Acetaminophen 325 Mg Tablet) 650 mg PO Q6H PRN PRN Reason: Pain, Mild (Pain Scale 1-3) Bisacodyl (Bisacodyl 10 Mg Supp.Rect) 10 mg VT ONCE ONE Stop: 07/28/22 22:57 Ertapenem 1 gm/ Sodium (Chloride) 50 mls @ 100 mls/hr IV ONCE ONE Stop: 07/28/22 23:28 Ertapenem 1 gm/ Sodium (Chloride) 50 mls @ 100 mls/hr IV DAILY [facility] Ketorolac Tromethamine (Ketorolac Tromethamine 30 Mg/Ml Vial) 30 mg IVPUSH Q6H PRN PRN Reason: Pain, Mild (Pain Scale 1-3) Stop: 08/02/22 22:56 Melatonin (Melatonin 3 Mg Tablet) 6 mg PO BEDTIME PRN PRN Reason: Insomnia Morphine Sulfate (Morphine Sulfate 4 Mg/Ml Cartridge) 4 mg IVPUSH Q4H PRN; Protocol PRN Reason: Pain, Severe (Pain Scale 7-10) Ondansetron HCl (Ondansetron Hcl 4 Mg/2 Ml Vial) 4 mg IVPUSH Q8H PRN PRN Reason: Nausea and Vomiting Pharmacy Consult (Consult Rx Perform Med Rec) 1 each MISCELLANE ONCE PRN PRN Reason: Consult order Senna (Sennosides 8.6 Mg Tablet) 17.2 mg PO BEDTIME PRN PRN Reason: Constipation Sodium Chloride (0.9 % Sodium Chloride Flush 3 Ml Syringe) 3 ml IVFLUSH QSHIFT [facility] Tamsulosin HCl (Tamsulosin Hcl 0.4 Mg Capsule) 0.4 mg PO DAILY [facility] Physical Exam Vital Signs and Narrative: Vital Signs: Last Vital Signs Temp 99.3 F 07/28/22 21:46 Pulse 106 H 07/28/22 22:28 Resp 24 H 07/28/22 22:28 BP 93/55 L 07/28/22 22:28 Pulse Ox 98 07/28/22 22:28 O2 Del Method 07/28/22 21:46 BMI result Body Mass Index 24.3 Middle-aged male lying in bed in no distress Neck supple, no JVD Tachycardic with regular rhythm, S1-S2 heard Regular breath sounds bilaterally, no wheezing or crackles appreciated Abdomen with generalized tenderness, no guarding, no rigidity, no rebound tenderness Genitourinary: Right testicle swollen and tender on palpation Patient is awake, alert and oriented to self, place, time and person ; no focal motor deficit Psych: Normal mood No pedal edema Results Labs CBC and Chem 7: 07/28/22 16:48 07/28/22 16:48 Labs: Laboratory Results - last 24 hr 07/28/22 07/28/22 07/28/22 16:45 16:48 16:48 MCV 88.6 MCH 30.5 MCHC 34.4 RDW 12.6 Plt Count 226 D MPV 10.9 Immature Gran % (Auto) Cancelled Neut % (Auto) Cancelled Lymph % (Auto) Cancelled [place] % (Auto) Cancelled Eos % (Auto) Cancelled Baso % (Auto) Cancelled Lymph # (Auto) Cancelled [place] # (Auto) Cancelled Eos # (Auto) Cancelled Baso # (Auto) Cancelled Abs Immat Gran (auto) Cancelled Absolute Neuts (auto) Cancelled Absolute Nucleated RBC 0.000 Nucleated RBC % (auto) 0.0 Neutrophils % (Manual) 85 H Band Neutrophils % 2 L Lymphocytes % (Manual) 4 L Monocytes % (Manual) 8 Eosinophils % (Manual) 1 Abs Neuts (Manual) 20.2 H Lymphocytes # (Manual) 0.9 L Monocytes # (Manual) 1.9 H Eosinophils # (Manual) 0.2 Toxic Vacuolation PRESENT Dohle Bodies PRESENT Platelet Estimate SLIGHTLY DECREASED Plt Morphology Comment NORMAL RBC Morphology NOTED Hypochromasia 1+ (5-14) Microcytosis 1+ (5-14) [place] Cells 1+ (0-2) Anion Gap 15 Estim Creat Clear Calc 86.1 Estimated GFR > 60 Random Glucose 107 Lactic Acid Calcium 9.2 Total Bilirubin 0.6 AST 31 ALT 23 Alkaline Phosphatase 89 Total Protein 7.0 Albumin 3.9 Urine Color Yellow Urine Appearance Clear Urine pH 6.0 Ur Specific [place] <= 1.005 Urine Protein Negative Urine Glucose (UA) Negative Urine Ketones Negative Urine Blood Small (1+) H Urine Nitrite Negative Ur Leukocyte Esterase Trace H Urine RBC 0-2 Urine WBC 0-5 Ur Squamous Epith Cells 0-2 Urine Bacteria None Seen Hyaline Casts 0-2 COVID-19 ([facility]) COVID-19 Clin Com 07/28/22 07/28/22 16:48 19:42 MCV MCH MCHC RDW Plt Count MPV Immature Gran % (Auto) Neut % (Auto) Lymph % (Auto) [place] % (Auto) Eos % (Auto) Baso % (Auto) Lymph # (Auto) [place] # (Auto) Eos # (Auto) Baso # (Auto) Abs Immat Gran (auto) Absolute Neuts (auto) Absolute Nucleated RBC Nucleated RBC % (auto) Neutrophils % (Manual) Band Neutrophils % Lymphocytes % (Manual) Monocytes % (Manual) Eosinophils % (Manual) Abs Neuts (Manual) Lymphocytes # (Manual) Monocytes # (Manual) Eosinophils # (Manual) Toxic Vacuolation Dohle Bodies Platelet Estimate Plt Morphology Comment RBC Morphology Hypochromasia Microcytosis [place] Cells Anion Gap Estim Creat Clear Calc Estimated GFR Random Glucose Lactic Acid 0.7 Calcium Total Bilirubin AST ALT Alkaline Phosphatase Total Protein Albumin Urine Color Urine Appearance Urine pH Ur Specific [place] Urine Protein Urine Glucose (UA) Urine Ketones Urine Blood Urine Nitrite Ur Leukocyte Esterase Urine RBC Urine WBC Ur Squamous Epith Cells Urine Bacteria Hyaline Casts COVID-19 ([facility]) Negative COVID-19 Clin Com See Note Imaging Radiologist's Impressions: Impressions Scrotum Ultrasound 07/28/22 17:10 IMPRESSION: Importantly the testicles are felt to be within there is a small hydrocele on the right and the software tools developer demonstrates findings which suggest a right inguinal herniation of omental fat. Correlation recommended clinically. Recommend surgical consultation. Given the appearance element of bowel involvement could not be excluded but this may be a loculated hydrocele on the right The epididymis on the right is mildly prominent. An element of epididymitis cannot be excluded. Scrotum Ultrasound 07/28/22 17:10 IMPRESSION: Importantly the testicles are felt to be within there is a small hydrocele on the right and the software tools developer demonstrates findings which suggest a right inguinal herniation of omental fat. Correlation recommended clinically. Recommend surgical consultation. Given the appearance element of bowel involvement could not be excluded but this may be a loculated hydrocele on the right The epididymis on the right is mildly prominent. An element of epididymitis cannot be excluded. Pelvis CT 07/28/22 20:28 IMPRESSION: No inguinal hernia. Moderate, heterogeneous hydroceles with stranding in the right inguinal canal. Assessment and Plan (1) Right testicular pain: Status: Acute (2) BPH (benign prostatic hyperplasia): Status: Acute (3) Epididymitis: Status: Acute Plan This is a 47-year-old male with pertinent history of benign prostatic hyperplasia, tobacco use disorder who presents to the emergency department with complaints of testicular pain. #. Sepsis due to right-sided epididymitis -will admit patient and resuscitate with IV crystalloids as per sepsis protocol. Lactic acid and blood cultures obtained. Initiating ertapenem as previous culture with ESBL. Consulted Infectious Disease. Chlamydia and gonorrhea PCR pending. Patient does have right-sided hydrocele on ultrasound which is likely reactive. No inguinal hernia on CT scan. Reassess once acute infection re solves #. Benign prostatic hyperplasia -on BPH DVT prophylaxis: Lovenox 40 mg daily Full code Regular diet Patient will require two night minimum hospital stay for need for IV antibiotics. Also follow blood cultures and ID consult pending Quality Stroke Does the patient have a stroke diagnosis?: No VTE Prior VTE?: No VTE Risk Level:: Medical - low VTE Device Contraindication: Treatment Not Indicated VTE Drug Contraindication: N/A - Med Ordered
[2022-07-28 23:39] VITALS: BP 104/62; PULSE 109; RESP 16; TEMP 37.2; O2SAT 99
[2022-07-29] MEDS: bisacodyL 10 MG SUPP.RECT PR (00:20)
[2022-07-29] MEDS: Enoxaparin Sodium 40 MG/0.4 ML SYRINGE SUBCUT ×2 (00:20→23:56)
[2022-07-29] MEDS: ondansetron HCL 4 MG/2 ML VIAL IVPUSH ×2 (00:23→17:46)
[2022-07-29] MEDS: Ketorolac Tromethamine 30 MG/ML VIAL IVPUSH (00:23)
[2022-07-29] MEDS: 0.9 % Sodium Chloride 1,000 ML 999 ML IV (01:23)
[2022-07-29 05:18] LABS: CT PCR NOT DETECTED (Not Detect.); NG PCR NOT DETECTED (Not Detect.)
[2022-07-29 05:49] VITALS: BP 101/62; PULSE 99; RESP 18; O2SAT 97
--- NOTE | 2022-07-29 06:02 | PC.NURSE ---
pt resting comfortably on stretcher. vital signs updated. pt has no current complaints, denies pain meds at this time. call ngo within reach
--- NOTE | 2022-07-29 06:03 | PC.NURSE ---
reort given to [place] medication administration professional
[2022-07-29 06:42] VITALS: BMI 24.7
[2022-07-29 07:45] VITALS: BP 103/56; PULSE 95; RESP 18; TEMP 36.7; O2SAT 97
[2022-07-29 08:28] LABS: Basophils Percent Auto 0.2 % (0-2); Eosinophils Absolute Auto 0.1 X10*3/uL (0.0-0.4); Eosinophils Percent Auto 0.3 % (0-4); Hemoglobin 10.6 g/dl (14.0-18.0); Imm Gran Abs Auto 0.19 X10*3/uL (0.00-0.03); Imm Gran Pct Auto 0.9 % (0.0-0.4); Lymphocytes Absolute Auto 1.6 X10*3/uL (1.2-4.9); Lymphocytes Percent Auto 7.8 % (20-40); MANUAL DIFF FLAG SCAN; Mean Corpuscular HGB Conc 33.1 g/dl (31.0-36.0); Mean Corpuscular Hemoglobin 29.8 pg (27.0-33.0); Mean Corpuscular Volume 89.9 fL (80.0-98.0); Mean Platelet Volume 11.4 fL (9.4-12.4); Monocytes Percent Auto 9.7 % (2-11); Neutrophils Absolute Auto 16.4 x10*3/uL (2.0-8.3); Neutrophils Percent Auto 81.1 % (45-73); Platelet Count 194 X10*3/uL (160-400); Red Blood Count 3.56 X10*6/uL (4.60-5.80); Red Cell Distribution Width 12.9 % (11.0-16.0); SCAN SMEAR FLAG 1; White Blood Count 20.3 X10*3/uL (4.8-10.8)
[2022-07-29 08:52] LABS: Anion Gap 13 (12-20); Blood Urea Nitrogen 12 mg/dL (9-16); Calcium 7.6 mg/dL (8.4-10.2); Carbon Dioxide 20 mmol/L (22-29); Chloride 110 mmol/L (96-108); Creatinine Clr Calc Pharmacy 105.5; Estimated Glomerular Filt Rate > 60; Glucose Random 87 mg/dL (60-115); Sodium 139 mmol/L (135-145)
[2022-07-29 08:56] LABS: SLIDE REVIEW VERIFIED
[2022-07-29] MEDS: Morphine Sulfate 4 MG/ML CARTRIDGE IVPUSH ×2 (10:17→17:46)
[2022-07-29] MEDS: Tamsulosin HCL 0.4 MG CAPSULE PO (10:17)
[2022-07-29] MEDS: 0.9 % Sodium Chloride Flush 3 ML SYRINGE IVFLUSH ×2 (10:26→23:56)
--- NOTE | 2022-07-29 11:42 | P.PNIM_ITS ---
Subjective Subjective Date of Service: 07/29/22 Interval History: seen and examined this AM still with testicular pain reports constipation Review of Systems negative except HPI Physical Exam Vital Signs: Vital Signs: Last Vital Signs Temp 98.1 F 07/29/22 07:45 Pulse 95 07/29/22 07:45 Resp 18 07/29/22 07:45 BP 103/56 L 07/29/22 07:45 Pulse Ox 97 07/29/22 07:45 O2 Del Method 07/29/22 07:45 BMI result Body Mass Index 24.7 Const: Other: General - no acute distress, appears comfortable Cardiovascular - regular rate and rhythm, S1-S2 Lungs - normal respiratory effort, clear to auscultation bilaterally, no wheezing Abdomen - soft, nontender, no rebound or guarding Extremities - no edema bilaterally Neuro - awake and alert, no focal deficits - R testicle appears swelling Objective Data Active Medications Acetaminophen (Acetaminophen 325 Mg Tablet) 650 mg PO Q6H PRN PRN Reason: Pain, Mild (Pain Scale 1-3) Enoxaparin Sodium (Enoxaparin Sodium 40 Mg/0.4 Ml Syringe) 40 mg SUBCUT Q24H [facility] Last Admin: 07/29/22 00:20 Dose: 40 mg Documented By: GLORIA Meropenem 1 gm/ Sodium (Chloride) 100 mls @ 200 mls/hr IV Q8H [facility] Ketorolac Tromethamine (Ketorolac Tromethamine 30 Mg/Ml Vial) 30 mg IVPUSH Q6H PRN PRN Reason: Pain, Mild (Pain Scale 1-3) Stop: 08/02/22 22:56 Last Admin: 07/29/22 00:23 Dose: 30 mg Documented By: GLORIA Melatonin (Melatonin 3 Mg Tablet) 6 mg PO BEDTIME PRN PRN Reason: Insomnia Morphine Sulfate (Morphine Sulfate 4 Mg/Ml Cartridge) 4 mg IVPUSH Q4H PRN; Protocol PRN Reason: Pain, Severe (Pain Scale 7-10) Last Admin: 07/29/22 10:17 Dose: 4 mg Documented By: HUSSEIN Nicotine (Nicotine 14 Mg Patch.Td24) 14 mg TRANSDERMA DAILY [facility] Last Admin: 07/29/22 10:03 Dose: Not Given Documented By: HUSSEIN Non-Admin Reason: Patient Refused Ondansetron HCl (Ondansetron Hcl 4 Mg/2 Ml Vial) 4 mg IVPUSH Q8H PRN PRN Reason: Nausea and Vomiting Last Admin: 07/29/22 00:23 Dose: 4 mg Documented By: GLORIA Pharmacy Consult (Consult Rx Perform Med Rec) 1 each MISCELLANE ONCE PRN PRN Reason: Consult order Senna (Sennosides 8.6 Mg Tablet) 17.2 mg PO BEDTIME PRN PRN Reason: Constipation Sodium Chloride (0.9 % Sodium Chloride Flush 3 Ml Syringe) 3 ml IVFLUSH QSHIFT [facility] Last Admin: 07/29/22 10:26 Dose: 3 ml Documented By: HUSSEIN Tamsulosin HCl (Tamsulosin Hcl 0.4 Mg Capsule) 0.4 mg PO DAILY [facility] Last Admin: 07/29/22 10:17 Dose: 0.4 mg Documented By: HUSSEIN Labs CBC & Chem 7: 07/29/22 07:42 07/29/22 07:42 Labs: Laboratory Results - last 24 hr 07/28/22 07/28/22 07/28/22 16:45 16:45 16:48 MCV 88.6 MCH 30.5 MCHC 34.4 RDW 12.6 Plt Count 226 D MPV 10.9 Immature Gran % (Auto) Cancelled Neut % (Auto) Cancelled Lymph % (Auto) Cancelled [place] % (Auto) Cancelled Eos % (Auto) Cancelled Baso % (Auto) Cancelled Lymph # (Auto) Cancelled [place] # (Auto) Cancelled Eos # (Auto) Cancelled Baso # (Auto) Cancelled Abs Immat Gran (auto) Cancelled Absolute Neuts (auto) Cancelled Absolute Nucleated RBC 0.000 Nucleated RBC % (auto) 0.0 Neutrophils % (Manual) 85 H Band Neutrophils % 2 L Lymphocytes % (Manual) 4 L Monocytes % (Manual) 8 Eosinophils % (Manual) 1 Abs Neuts (Manual) 20.2 H Lymphocytes # (Manual) 0.9 L Monocytes # (Manual) 1.9 H Eosinophils # (Manual) 0.2 Toxic Vacuolation PRESENT Dohle Bodies PRESENT Platelet Estimate SLIGHTLY DECREASED Plt Morphology Comment NORMAL RBC Morphology NOTED Hypochromasia 1+ (5-14) Microcytosis 1+ (5-14) [place] Cells 1+ (0-2) Smear Tech's Comments Anion Gap Estim Creat Clear Calc Estimated GFR Random Glucose Lactic Acid Calcium Total Bilirubin AST ALT Alkaline Phosphatase Total Protein Albumin Urine Color Yellow Urine Appearance Clear Urine pH 6.0 Ur Specific [place] <= 1.005 Urine Protein Negative Urine Glucose (UA) Negative Urine Ketones Negative Urine Blood Small (1+) H Urine Nitrite Negative Ur Leukocyte Esterase Trace H Urine RBC 0-2 Urine WBC 0-5 Ur Squamous Epith Cells 0-2 Urine Bacteria None Seen Hyaline Casts 0-2 Chlam trachomat DNA PCR NOT DETECTED COVID-19 ([facility]) COVID-19 Clin Com N.gonorrhoeae DNA (PCR) NOT DETECTED 07/28/22 07/28/22 07/28/22 16:48 16:48 19:42 MCV MCH MCHC RDW Plt Count MPV Immature Gran % (Auto) Neut % (Auto) Lymph % (Auto) [place] % (Auto) Eos % (Auto) Baso % (Auto) Lymph # (Auto) [place] # (Auto) Eos # (Auto) Baso # (Auto) Abs Immat Gran (auto) Absolute Neuts (auto) Absolute Nucleated RBC Nucleated RBC % (auto) Neutrophils % (Manual) Band Neutrophils % Lymphocytes % (Manual) Monocytes % (Manual) Eosinophils % (Manual) Abs Neuts (Manual) Lymphocytes # (Manual) Monocytes # (Manual) Eosinophils # (Manual) Toxic Vacuolation Dohle Bodies Platelet Estimate Plt Morphology Comment RBC Morphology Hypochromasia Microcytosis [place] Cells Smear Tech's Comments Anion Gap 15 Estim Creat Clear Calc 86.1 Estimated GFR > 60 Random Glucose 107 Lactic Acid 0.7 Calcium 9.2 Total Bilirubin 0.6 AST 31 ALT 23 Alkaline Phosphatase 89 Total Protein 7.0 Albumin 3.9 Urine Color Urine Appearance Urine pH Ur Specific [place] Urine Protein Urine Glucose (UA) Urine Ketones Urine Blood Urine Nitrite Ur Leukocyte Esterase Urine RBC Urine WBC Ur Squamous Epith Cells Urine Bacteria Hyaline Casts Chlam trachomat DNA PCR COVID-19 ([facility]) Negative COVID-19 Clin Com See Note N.gonorrhoeae DNA (PCR) 07/29/22 07/29/22 07:42 07:42 MCV 89.9 MCH 29.8 MCHC 33.1 RDW 12.9 Plt Count 194 MPV 11.4 Immature Gran % (Auto) 0.9 H Neut % (Auto) 81.1 H Lymph % (Auto) 7.[address] [place] % (Auto) 9.7 Eos % (Auto) 0.3 Baso % (Auto) 0.2 Lymph # (Auto) 1.6 [place] # (Auto) 2.0 H Eos # (Auto) 0.1 Baso # (Auto) 0.0 Abs Immat Gran (auto) 0.19 H Absolute Neuts (auto) 16.4 H Absolute Nucleated RBC 0.000 Nucleated RBC % (auto) 0.0 Neutrophils % (Manual) Band Neutrophils % Lymphocytes % (Manual) Monocytes % (Manual) Eosinophils % (Manual) Abs Neuts (Manual) Lymphocytes # (Manual) Monocytes # (Manual) Eosinophils # (Manual) Toxic Vacuolation Dohle Bodies Platelet Estimate Plt Morphology Comment RBC Morphology Hypochromasia Microcytosis [place] Cells Smear Tech's Comments VERIFIED Anion Gap 13 Estim Creat Clear Calc 105.5 Estimated GFR > 60 Random Glucose 87 Lactic Acid Calcium 7.6 L D Total Bilirubin AST ALT Alkaline Phosphatase Total Protein Albumin Urine Color Urine Appearance Urine pH Ur Specific [place] Urine Protein Urine Glucose (UA) Urine Ketones Urine Blood Urine Nitrite Ur Leukocyte Esterase Urine RBC Urine WBC Ur Squamous Epith Cells Urine Bacteria Hyaline Casts Chlam trachomat DNA PCR COVID-19 ([facility]) COVID-19 Clin Com N.gonorrhoeae DNA (PCR) Assessment and Plan (1) Epididymitis: Status: Acute Plan This is a 47-year-old male with pertinent history of benign prostatic hyperplasia, tobacco use disorder who presents to the emergency department with complaints of testicular pain. #.? Sepsis due to right-sided epididymitis meets sepsis with tachycardia and leukocytosis continue carbepenam ID and urology follow up # Benign prostatic hyperplasia -on BPH Full Code DVT pptx Lonenox requires on going hospitalization for treatment of an ESBL positive organism. furthermore, requires ID and urology consult input Quality Stroke Does the patient have a stroke diagnosis?: No VTE Prior VTE?: No VTE Risk Level:: Medical - low VTE Device Contraindication: Treatment Not Indicated VTE Drug Contraindication: N/A - Med Ordered
[2022-07-29 11:55] VITALS: BP 97/55; PULSE 93; RESP 18; TEMP 37.1; O2SAT 96
--- NOTE | 2022-07-29 12:23 | P.CNUR_ITS ---
History of Present Illness Consult details Consult date: 07/29/22 Narrative: Concerning complaint - epididymitis 47-year-old male Representation with elevated white count, positive UA, question of epididymitis Prior admission beginning of the month with complicated cystitis Urine culture showed ESBL Klebsiella sensitive to only ertapenem and Bactrim Current culture pending Laboratories WBC 20.3, UA positive nitrite, PSA 15 reactive Recommendation start double coverage antibiotics As WBC falls may switch to oral Bactrim if sensitivity pattern persistent Will require 2-3 weeks of antibiotics Continue with tamsulosin for prostate issues Prior UTI was partially caused by constipation and needs to be on bowel regimen Current imaging shows right reactive hydrocele Review of Systems Constitutional: Constitutional: Reports as per HPI and Reports no additional constitutional complaints Cardiovascular: Cardiovascular: Reports as per HPI and Reports no additional cardiovascular complaints Respiratory: Respiratory: Reports as per HPI and Reports no additional respiratory complaints Gastrointestinal: Gastrointestinal: Reports as per HPI and Reports no additional gastrointestinal complaints Genitourinary: Genitourinary: Reports as per HPI Musculoskeletal: Musculoskeletal: Reports no additional musculoskeletal complaints and Reports as per HPI Neurologic: Reports system reviewed and no additional complaints, except as documented and Reports as per HPI PMF Past Medical History Medical History BPH (benign prostatic hyperplasia) Complicated UTI (urinary tract infection) Sepsis Tooth infection Family History Family History Mother Multiple myeloma HTN (hypertension) Psychosis Social History Social History Household Members: Other Housing: House Do you presently have visiting nurse or other home services: No Alcohol intake: never Patient Tobacco Use Status: Current someday Tobacco user Tobacco use type: Cigarette Substance Use Type: Marijuana service: No Current occupational status: employed Meds Allergies Allergy/AdvReac Type Severity Reaction Status Date / Time No Known Allergies Allergy Unverified 07/27/22 12:50 Active Medications: Current Medications Acetaminophen (Acetaminophen 325 Mg Tablet) 650 mg PO Q6H PRN PRN Reason: Pain, Mild (Pain Scale 1-3) Enoxaparin Sodium (Enoxaparin Sodium 40 Mg/0.4 Ml Syringe) 40 mg SUBCUT Q24H [facility] Last Admin: 07/29/22 00:20 Dose: 40 mg Meropenem 1 gm/ Sodium (Chloride) 100 mls @ 200 mls/hr IV Q8H [facility] Ketorolac Tromethamine (Ketorolac Tromethamine 30 Mg/Ml Vial) 30 mg IVPUSH Q6H PRN PRN Reason: Pain, Mild (Pain Scale 1-3) Stop: 08/02/22 22:56 Last Admin: 07/29/22 00:23 Dose: 30 mg Melatonin (Melatonin 3 Mg Tablet) 6 mg PO BEDTIME PRN PRN Reason: Insomnia Morphine Sulfate (Morphine Sulfate 4 Mg/Ml Cartridge) 4 mg IVPUSH Q4H PRN; Protocol PRN Reason: Pain, Severe (Pain Scale 7-10) Last Admin: 07/29/22 10:17 Dose: 4 mg Nicotine (Nicotine 14 Mg Patch.Td24) 14 mg TRANSDERMA DAILY [facility] Last Admin: 07/29/22 10:03 Dose: Not Given Ondansetron HCl (Ondansetron Hcl 4 Mg/2 Ml Vial) 4 mg IVPUSH Q8H PRN PRN Reason: Nausea and Vomiting Last Admin: 07/29/22 00:23 Dose: 4 mg Oxycodone HCl (Oxycodone Hcl Immed Release 5 Mg Tablet) 5 mg PO Q6H PRN PRN Reason: Pain, Severe (Pain Scale 7-10) Pharmacy Consult (Consult Rx Perform Med Rec) 1 each MISCELLANE ONCE PRN PRN Reason: Consult order Polyethylene Glycol (Polyethylene Glycol 3350 17 Gm Powd.Pack) 17 gm PO DAILY PRN PRN Reason: Constipation Senna (Sennosides 8.6 Mg Tablet) 17.2 mg PO BEDTIME PRN PRN Reason: Constipation Sodium Chloride (0.9 % Sodium Chloride Flush 3 Ml Syringe) 3 ml IVFLUSH QSHIFT [facility] Last Admin: 07/29/22 10:26 Dose: 3 ml Tamsulosin HCl (Tamsulosin Hcl 0.4 Mg Capsule) 0.4 mg PO DAILY [facility] Last Admin: 07/29/22 10:17 Dose: 0.4 mg Physical Exam Vital Signs: Vital Signs: Last Vital Signs Temp 98.7 F 07/29/22 11:55 Pulse 93 07/29/22 11:55 Resp 18 07/29/22 11:55 BP 97/55 L 07/29/22 11:55 Pulse Ox 96 07/29/22 11:55 O2 Del Method 07/29/22 11:55 BMI result Body Mass Index 24.7 Const: General: cooperative, healthy appearing, comfortable and no acute distress Orientation/consciousness: patient oriented x3 HEENT: Face and sinus: Yes normal facial exam Mouth: moist mucous membranes Neck: Neck: Yes normal visual inspection, Yes full ROM and Yes trachea midline Chest: Chest palpation & inspection: normal inspection of the chest Resp: Effort & Inspection: normal respiratory effort, able to speak in complete sentences and no respiratory distress GI: Inspection: Yes normal to inspection Back/Spine/Pelvis: Cervical Spine: normal cervical lordosis Thoracic/Lumbar Spine: thoracic and lumbar spine normal to inspection Skin: General skin exam: no rashes or lesions noted Neuro: General: patient oriented x3, tone normal and moves all extremities Extrem: General: Yes normal to inspection and Yes capillary refill normal Results Labs Result diagrams: 07/29/22 07:42 07/29/22 07:42 Labs: Abnormal lab results 07/28/22 07/28/22 07/29/22 Range/Units 16:45 16:48 07:42 WBC 23.2 H 20.3 H (4.8-10.8) X10*3/uL RBC 4.20 L 3.56 L (4.60-5.80) X10*6/uL Hgb 12.8 L 10.6 L (14.0-18.0) g/dl Hct 37.2 L 32.0 L (42.0-52.0) % Immature Gran % (Auto) 0.9 H (0.0-0.4) % Neut % (Auto) 81.1 H (45-73) % Lymph % (Auto) 7.8 L (20-40) % [place] # (Auto) 2.0 H (0.1-1.2) X10*3/uL Abs Immat Gran (auto) 0.19 H (0.00-0.03) X10*3/uL Absolute Neuts (auto) 16.4 H (2.0-8.3) x10*3/uL Neutrophils % (Manual) 85 H (45-73) % Band Neutrophils % 2 L (3-5) % Lymphocytes % (Manual) 4 L (20-40) % Abs Neuts (Manual) 20.2 H (2.0-8.3) X10*3/uL Lymphocytes # (Manual) 0.9 L (1.2-4.9) X10*3/uL Monocytes # (Manual) 1.9 H (0.1-1.2) X10*3/uL Chloride (96-108) mmol/L Carbon Dioxide (22-29) mmol/L Calcium (8.4-10.2) mg/dL Urine Blood Small (1+) H (Negative) Ur Leukocyte Esterase Trace H (Negative) 07/29/22 Range/Units 07:42 WBC (4.8-10.8) X10*3/uL RBC (4.60-5.80) X10*6/uL Hgb (14.0-18.0) g/dl Hct (42.0-52.0) % Immature Gran % (Auto) (0.0-0.4) % Neut % (Auto) (45-73) % Lymph % (Auto) (20-40) % [place] # (Auto) (0.1-1.2) X10*3/uL Abs Immat Gran (auto) (0.00-0.03) X10*3/uL Absolute Neuts (auto) (2.0-8.3) x10*3/uL Neutrophils % (Manual) (45-73) % Band Neutrophils % (3-5) % Lymphocytes % (Manual) (20-40) % Abs Neuts (Manual) (2.0-8.3) X10*3/uL Lymphocytes # (Manual) (1.2-4.9) X10*3/uL Monocytes # (Manual) (0.1-1.2) X10*3/uL Chloride 110 H (96-108) mmol/L Carbon Dioxide 20 L (22-29) mmol/L Calcium 7.6 L D (8.4-10.2) mg/dL Urine Blood (Negative) Ur Leukocyte Esterase (Negative) Short CBC 07/28/22 07/29/22 Range/Units 16:48 07:42 WBC 23.2 H 20.3 H (4.8-10.8) X10*3/uL Hgb 12.8 L 10.6 L (14.0-18.0) g/dl Hct 37.2 L 32.0 L (42.0-52.0) % Plt Count 226 D 194 (160-400) X10*3/uL BMP 07/28/22 07/29/22 16:48 07:42 Sodium 137 139 Potassium 4.1 4.0 Chloride 101 110 H Carbon Dioxide 25 20 L BUN 15 12 Creatinine 0.98 0.80 Calcium 9.2 7.6 L D Liver Function 07/28/22 Range/Units 16:48 Total Bilirubin 0.6 (0.0-1.0) mg/dL AST 31 (5-37) U/L ALT 23 (0-40) U/L Alkaline Phosphatase 89 (39-117) U/L Albumin 3.9 (3.5-5.0) g/dL Urine 07/28/22 Range/Units 16:45 Urine Color Yellow Urine Appearance Clear Urine pH 6.0 (5.0-9.0) Ur Specific [place] <= 1.005 (1.005-1.025) Urine Protein Negative (Neg-Trace) mg/dL Urine Glucose (UA) Negative (Negative) mg/dL All other labs normal. Assessment and Plan (1) Epididymitis: Status: Acute (2) Urinary tract infection due to ESBL Klebsiella: Status: Acute (3) Right testicular pain: Status: Acute (4) BPH (benign prostatic hyperplasia): Status: Acute Plan Double coverage antibiotic IV Pending urinary culture Procedures Date of Service Date of Service: 07/29/22
[2022-07-29] MEDS: Lactulose 20 GM/30 ML SOLUTION PO ×2 (13:22→21:12)
--- NOTE | 2022-07-29 13:45 | MHC.CM.PN ---
CM MET WITH PT. LIVES WITH A FRIEND IN AN APARTMENT, NO SERVICES OR DME, IS EMPLOYED. PT STATES HE HAS A HCP AT HOME, DOES NOT WANT TO DO A NEW ONE. NO COVID VAX. PCP DR. OVIEDO AT [facility] [place]. DP: PT ANTICIPATED HOME, NO SERVICES. FRIEND OR DAUGHTER WILL TRANSPORT HOME. CM WILL CONTINUE TO FOLLOW.
[2022-07-29] MEDS: Sulfamethoxazole/Trimethoprim 160 MG in Dextrose 5 % 500 ML 225 MG IV ×2 (14:53→21:14)
[2022-07-29] MEDS: oxyCODONE HCl Immed Release 5 MG TABLET PO (15:04)
[2022-07-29 16:00] VITALS: BP 107/59; PULSE 107; RESP 17; TEMP 37.2; O2SAT 96
[2022-07-29 20:00] VITALS: BP 106/59; PULSE 100; RESP 17; TEMP 38.2; O2SAT 96
[2022-07-29] MEDS: Acetaminophen 325 MG TABLET 650 MG PO (20:28)
[2022-07-29 20:32] VITALS: TEMP 38.3
[2022-07-30] VITALS (9 sets, daily range): BP systolic 90–124; BP diastolic 52–63; PULSE 89–106; RESP 16–18; TEMP 37–37.7; O2SAT 90–97
[2022-07-30] MEDS: Morphine Sulfate 4 MG/ML CARTRIDGE IVPUSH ×3 (04:57→17:13)
[2022-07-30] MEDS: ondansetron HCL 4 MG/2 ML VIAL IVPUSH (04:57)
[2022-07-30] MEDS: Sulfamethoxazole/Trimethoprim 160 MG in Dextrose 5 % 500 ML 225 MG IV ×3 (05:05→20:27)
--- NOTE | 2022-07-30 08:09 | P.PNIM_ITS ---
Subjective Subjective Date of Service: 07/30/22 Interval History: Patient seen and examined at bedside. Reports that his pain is better controlled this morning. Still has pain in the groin region, but it is more tolerable. He denies any fever or chills overnight, denies any pain, shortness of breath, no abdominal pain nausea or vomiting, no diarrhea constipation, and no urinary symptoms at this time. Review of Systems Review of Systems: Yes all other systems are reviewed and are negative Physical Exam Vital Signs: Vital Signs: Last Vital Signs Temp 99.1 F 07/30/22 07:19 Pulse 92 07/30/22 07:19 Resp 17 07/30/22 07:19 BP 90/54 L 07/30/22 07:19 Pulse Ox 97 07/30/22 07:19 O2 Del Method 07/30/22 07:19 BMI result Body Mass Index 24.7 Const: Other: Patient awake, alert, oriented x3, no acute distress Resp: Other: Lungs clear to auscultation, normal respiratory effort GI: Other: Abdomen is soft, nontender : Other: Suprapubic tenderness in the groin region bilaterally Extrem: Other: No pedal edema, Objective Data Active Medications Acetaminophen (Acetaminophen 325 Mg Tablet) 650 mg PO Q6H PRN PRN Reason: Pain, Mild (Pain Scale 1-3) Last Admin: 07/29/22 20:28 Dose: 650 mg Documented By: MARIBEL Enoxaparin Sodium (Enoxaparin Sodium 40 Mg/0.4 Ml Syringe) 40 mg SUBCUT Q24H [facility] Last Admin: 07/29/22 23:56 Dose: 40 mg Documented By: MARIBEL Meropenem 1 gm/ Sodium (Chloride) 100 mls @ 200 mls/hr IV Q8H [facility] Last Infusion: 07/30/22 04:52 Dose: 0 mls/hr Documented By: MARIBEL Trimethoprim/Sulfamethoxazole (160 mg/ Dextrose) 510 mls @ 225 mls/hr IV Q8H [facility] Last Admin: 07/30/22 05:05 Dose: 225 mls/hr Documented By: MARIBEL Lactated Ringer's (Lr) 1,000 mls @ 999 mls/hr IV .Q1H1M [facility] Stop: 07/30/22 09:15 Ketorolac Tromethamine (Ketorolac Tromethamine 30 Mg/Ml Vial) 30 mg IVPUSH Q6H PRN PRN Reason: Pain, Mild (Pain Scale 1-3) Stop: 08/02/22 22:56 Last Admin: 07/29/22 00:23 Dose: 30 mg Documented By: GLORIA Lactulose (Lactulose 20 Gm/30 Ml Solution) 20 gm PO BID [facility] Last Admin: 07/29/22 21:12 Dose: 20 gm Documented By: MARIBEL Melatonin (Melatonin 3 Mg Tablet) 6 mg PO BEDTIME PRN PRN Reason: Insomnia Morphine Sulfate (Morphine Sulfate 4 Mg/Ml Cartridge) 4 mg IVPUSH Q4H PRN; Protocol PRN Reason: Pain, Severe (Pain Scale 7-10) Last Admin: 07/30/22 04:57 Dose: 4 mg Documented By: MARIBEL Nicotine (Nicotine 14 Mg Patch.Td24) 14 mg TRANSDERMA DAILY [facility] Last Admin: 07/29/22 10:03 Dose: Not Given Documented By: HUSSEIN Non-Admin Reason: Patient Refused Ondansetron HCl (Ondansetron Hcl 4 Mg/2 Ml Vial) 4 mg IVPUSH Q8H PRN PRN Reason: Nausea and Vomiting Last Admin: 07/30/22 04:57 Dose: 4 mg Documented By: MARIBEL Oxycodone HCl (Oxycodone Hcl Immed Release 5 Mg Tablet) 5 mg PO Q6H PRN PRN Reason: Pain, Severe (Pain Scale 7-10) Last Admin: 07/29/22 15:04 Dose: 5 mg Documented By: HUSSEIN Pharmacy Consult (Consult Rx Perform Med Rec) 1 each MISCELLANE ONCE PRN PRN Reason: Consult order Polyethylene Glycol (Polyethylene Glycol 3350 17 Gm Powd.Pack) 17 gm PO DAILY PRN PRN Reason: Constipation Senna (Sennosides 8.6 Mg Tablet) 17.2 mg PO BEDTIME PRN PRN Reason: Constipation Sodium Chloride (0.9 % Sodium Chloride Flush 3 Ml Syringe) [address] [facility] Last Admin: 07/29/22 23:56 Dose: 3 ml Documented By: MARIBEL Tamsulosin HCl (Tamsulosin Hcl 0.4 Mg Capsule) 0.4 mg PO DAILY [facility] Last Admin: 07/29/22 10:17 Dose: 0.4 mg Documented By: HUSSEIN Labs CBC & Chem 7: 07/30/22 08:31 07/30/22 08:31 Labs: Laboratory Results - last 24 hr 07/29/22 07/29/22 07:42 07:42 MCV 89.9 MCH 29.8 MCHC 33.1 RDW 12.9 Plt Count 194 MPV 11.4 Immature Gran % (Auto) 0.9 H Neut % (Auto) 81.1 H Lymph % (Auto) 7.8 L [place] % (Auto) 9.7 Eos % (Auto) 0.3 Baso % (Auto) 0.2 Lymph # (Auto) 1.6 [place] # (Auto) 2.0 H Eos # (Auto) 0.1 Baso # (Auto) 0.0 Abs Immat Gran (auto) 0.19 H Absolute Neuts (auto) 16.4 H Absolute Nucleated RBC 0.000 Nucleated RBC % (auto) 0.0 Smear Tech's Comments VERIFIED Anion Gap 13 Estim Creat Clear Calc 105.5 Estimated GFR > 60 Random Glucose 87 Calcium 7.6 L D Microbiology Microbiology Results: Microbiology 07/28/22 19:42 Blood Culture - Preliminary Blood - Venous No growth after 24 hours. 07/28/22 19:42 Blood Culture - Preliminary Blood - Venous No growth after 24 hours. Assessment and Plan (1) Epididymitis: Status: Acute (2) ESBL (extended spectrum beta-lactamase) producing bacteria infection: Status: Acute Plan This is a 47-year-old male with pertinent history of benign prostatic hyperplasia, tobacco use disorder who presents to the emergency department with complaints of testicular pain found to have sepsis secondary to epididymitis # epididymides - had sepsis on admission, that now has stabilized and resolved - secondary to ESBL organism - continue ertapenem, Urology recommended dual coverage, will add TMP SMX - ID and urology follow up # ESBL organism infection - seen on urine cultures done on 07/08 - continue ertapenem, as well as TMP SMX - pending further cultures # Benign prostatic hyperplasia - continue tamsulosin Full Code DVT pptx Lonenox requires on going hospitalization for treatment of an ESBL positive organism. furthermore, requires ID and urology consult input Quality Stroke Does the patient have a stroke diagnosis?: No VTE Prior VTE?: No VTE Risk Level:: Medical - low VTE Device Contraindication: Treatment Not Indicated VTE Drug Contraindication: N/A - Med Ordered
[2022-07-30] MEDS: Lactated Ringers 1,000 ML 999 ML IV (08:22)
[2022-07-30] MEDS: 0.9 % Sodium Chloride Flush 3 ML SYRINGE IVFLUSH (08:24)
[2022-07-30] MEDS: Lactulose 20 GM/30 ML SOLUTION PO (08:25)
[2022-07-30] MEDS: Tamsulosin HCL 0.4 MG CAPSULE PO (08:25)
[2022-07-30] MEDS: Acetaminophen 325 MG TABLET 650 MG PO ×2 (08:28→17:14)
[2022-07-30 08:52] LABS: MANUAL DIFF FLAG NO
[2022-07-30 08:56] LABS: Basophils Absolute Auto 0.1 X10*3/uL (0.0-0.2); Basophils Percent Auto 0.4 % (0-2); Eosinophils Absolute Auto 0.1 X10*3/uL (0.0-0.4); Eosinophils Percent Auto 0.7 % (0-4); Hematocrit 36.1 % (42.0-52.0); Hemoglobin 11.9 g/dl (14.0-18.0); Imm Gran Abs Auto 0.08 X10*3/uL (0.00-0.03); Imm Gran Pct Auto 0.5 % (0.0-0.4); Lymphocytes Absolute Auto 1.8 X10*3/uL (1.2-4.9); Lymphocytes Percent Auto 11.8 % (20-40); Mean Corpuscular Hemoglobin 29.7 pg (27.0-33.0); Monocytes Absolute Auto 1.4 X10*3/uL (0.1-1.2); Monocytes Percent Auto 9.4 % (2-11); Neutrophils Absolute Auto 11.9 x10*3/uL (2.0-8.3); Neutrophils Percent Auto 77.2 % (45-73); Platelet Count 227 X10*3/uL (160-400); Red Blood Count 4.01 X10*6/uL (4.60-5.80); Red Cell Distribution Width 12.9 % (11.0-16.0); White Blood Count 15.4 X10*3/uL (4.8-10.8)
[2022-07-30 09:03] LABS: Lactic Acid 1.4 mmol/L (0.5-2.0)
[2022-07-30 09:24] LABS: Anion Gap 16 (12-20); Blood Urea Nitrogen 7 mg/dL (9-16); Calcium 8.6 mg/dL (8.4-10.2); Carbon Dioxide 23 mmol/L (22-29); Chloride 104 mmol/L (96-108); Creatinine Clr Calc Pharmacy 98.2; Estimated Glomerular Filt Rate > 60; Glucose Random 79 mg/dL (60-115); Potassium 4.1 mmol/L (3.3-5.1); Sodium 139 mmol/L (135-145)
[2022-07-30] MEDS: Lactated Ringers 1,000 ML 100 ML IVCONT (12:52)
--- NOTE | 2022-07-30 22:56 | W.PM.IDCN ---
History of Present Illness Data of Consult Service Date: 07/29/22 Requesting physician: Mason Sandy Primary Care Provider: Joni Fallon MD HPI Reason for consult: scrotal swelling He presents with pain and swelling right testicle primarily and scrotum for four days. He had cystitis in early July and ESBL E coli sensitive to Ertapenem and Bactrim only. He has scrotum swelling and hydroceles. He had been given Ceftin earlier He has ESBL in urine earlier Review of Systems Review of Systems: Yes all other systems are reviewed and are negative [facility] Past Medical History Medical History BPH (benign prostatic hyperplasia) Complicated UTI (urinary tract infection) Sepsis Tooth infection Family History Family History Mother Multiple myeloma HTN (hypertension) Psychosis Family history: reviewed and not pertinent Social History Social History Household Members: Other Housing: House Do you presently have visiting nurse or other home services: No Alcohol intake: never Patient Tobacco Use Status: Current someday Tobacco user Tobacco use type: Cigarette Substance Use Type: Marijuana service: No Current occupational status: employed Meds Allergies Allergy/AdvReac Type Severity Reaction Status Date / Time No Known Allergies Allergy Unverified 07/27/22 12:50 Active Medications: Current Medications Acetaminophen (Acetaminophen 325 Mg Tablet) 650 mg PO Q6H PRN PRN Reason: Pain, Mild (Pain Scale 1-3) Last Admin: 07/30/22 17:14 Dose: 650 mg Enoxaparin Sodium (Enoxaparin Sodium 40 Mg/0.4 Ml Syringe) 40 mg SUBCUT Q24H [facility] Last Admin: 07/29/22 23:56 Dose: 40 mg Meropenem 1 gm/ Sodium (Chloride) 100 mls @ 200 mls/hr IV Q8H [facility] Last Infusion: 07/30/22 20:20 Dose: Infused Trimethoprim/Sulfamethoxazole (160 mg/ Dextrose) 510 mls @ 225 mls/hr IV Q8H [facility] Last Admin: 07/30/22 20:27 Dose: 225 mls/hr Lactated Ringer's (Lr) 1,000 mls @ 100 mls/hr IVCONT .Q10H [facility] Last Infusion: 07/30/22 18:20 Dose: 100 mls/hr Ketorolac Tromethamine (Ketorolac Tromethamine 30 Mg/Ml Vial) 30 mg IVPUSH Q6H PRN PRN Reason: Pain, Mild (Pain Scale 1-3) Stop: 08/02/22 22:56 Last Admin: 07/29/22 00:23 Dose: 30 mg Lactulose (Lactulose 20 Gm/30 Ml Solution) 20 gm PO BID [facility] Last Admin: 07/30/22 20:32 Dose: Not Given Melatonin (Melatonin 3 Mg Tablet) 6 mg PO BEDTIME PRN PRN Reason: Insomnia Morphine Sulfate (Morphine Sulfate 4 Mg/Ml Cartridge) 4 mg IVPUSH Q4H PRN; Protocol PRN Reason: Pain, Severe (Pain Scale 7-10) Last Admin: 07/30/22 17:13 Dose: 4 mg Nicotine (Nicotine 14 Mg Patch.Td24) 14 mg TRANSDERMA DAILY [facility] Last Admin: 07/30/22 08:25 Dose: Not Given Ondansetron HCl (Ondansetron Hcl 4 Mg/2 Ml Vial) 4 mg IVPUSH Q8H PRN PRN Reason: Nausea and Vomiting Last Admin: 07/30/22 04:57 Dose: 4 mg Oxycodone HCl (Oxycodone Hcl Immed Release 5 Mg Tablet) 5 mg PO Q6H PRN PRN Reason: Pain, Severe (Pain Scale 7-10) Last Admin: 07/29/22 15:04 Dose: 5 mg Pharmacy Consult (Consult Rx Perform Med Rec) 1 each MISCELLANE ONCE PRN PRN Reason: Consult order Polyethylene Glycol (Polyethylene Glycol 3350 17 Gm Powd.Pack) 17 gm PO DAILY PRN PRN Reason: Constipation Senna (Sennosides 8.6 Mg Tablet) 17.2 mg PO BEDTIME PRN PRN Reason: Constipation Sodium Chloride (0.9 % Sodium Chloride Flush 3 Ml Syringe) 3 ml IVFLUSH QSHIFT [facility] Last Admin: 07/30/22 16:09 Dose: Not Given Tamsulosin HCl (Tamsulosin Hcl 0.4 Mg Capsule) 0.4 mg PO DAILY [facility] Last Admin: 07/30/22 08:25 Dose: 0.4 mg Physical Exam Vital Signs: Vital Signs: Last Vital Signs Temp 98.6 F 07/30/22 19:50 Pulse 100 07/30/22 19:50 Resp 17 07/30/22 19:50 BP 124/55 L 07/30/22 19:50 Pulse Ox 95 07/30/22 19:50 O2 Del Method 07/30/22 19:50 BMI result Body Mass Index 24.7 Const: General: cooperative HEENT: Head: Yes normal to inspection Face and sinus: Yes normal facial exam Mouth: Normal oral and palatal mucosa present Teeth and gingiva: dentition normal Eyes: General: appearance normal, both eyes and all related structures Pupils: Equal, round and reactive pupils present Resp: Effort & Inspection: normal respiratory effort Cardio: Rate: regular rate Rhythm: regular rhythm GI: Palpation (GI): Soft to palpation and nontender : Other: moderate cellulitis penis,less swelling General: Yes no CVA tenderness Back/Spine/Pelvis: Back: no CVA tenderness Skin: General skin exam: no rashes or lesions noted Neuro: General: moves all extremities Cranial nerves: Yes Equal, round and reactive pupils present Extrem: General: Yes normal to inspection Psych: Appearance: grossly normal Results Labs CBC & Chem 7: 07/30/22 08:31 07/30/22 08:31 Labs: Short CBC 07/30/22 Range/Units 08:31 WBC 15.4 H (4.8-10.8) X10*3/uL Hgb 11.9 L (14.0-18.0) g/dl Hct 36.1 L (42.0-52.0) % Plt Count 227 (160-400) X10*3/uL BMP 07/30/22 08:31 Sodium 139 Potassium 4.1 Chloride 104 Carbon Dioxide 23 BUN 7 L Creatinine 0.86 Calcium 8.6 D Microbiology Microbiology Results: Microbiology 07/28/22 19:42 Blood - Venous Blood Culture - Preliminary No growth after 48 hours. 07/28/22 19:42 Blood - Venous Blood Culture - Preliminary No growth after 48 hours. Assessment and Plan (1) ESBL (extended spectrum beta-lactamase) producing bacteria infection: Status: Acute (2) Epididymitis: Status: Acute This epididimytis may be due to bacterial ESBL E coli (3) Urinary tract infection due to ESBL Klebsiella: Status: Acute Plan Would give Ertapenem when in hospital but not bacteremic so finish po Bactrim for fourteen days outpatient. There is no need for duplicate gram negative coverage now.
[2022-07-30] MEDS: Enoxaparin Sodium 40 MG/0.4 ML SYRINGE SUBCUT (23:50)
[2022-07-31] VITALS (7 sets, daily range): BP systolic 98–113; BP diastolic 54–67; PULSE 80–104; RESP 17–18; TEMP 36.6–37.9; O2SAT 94–99
[2022-07-31] MEDS: Acetaminophen 325 MG TABLET 650 MG PO ×3 (03:57→23:27)
[2022-07-31] MEDS: Lactated Ringers 1,000 ML 100 ML IVCONT ×2 (05:47→16:18)
[2022-07-31] MEDS: Tamsulosin HCL 0.4 MG CAPSULE PO (08:35)
--- NOTE | 2022-07-31 08:46 | HO.PM.IMPN ---
Subjective Subjective Date of Service: 07/31/22 Interval History: Patient seen and examined at bedside. reports improvement in pain. denies any chest pain, no sob, no abd pain, no constipation. does report some blood after he moves his bowels and wipes, states that he feels that he has to push something in when he finishes moving his bowels and it sometimes bleeds. otherwise no overnight events, no fever or chills. Review of Systems Review of Systems: Yes all other systems are reviewed and are negative Physical Exam Vital Signs: Vital Signs: Last Vital Signs Temp 99.3 F 07/31/22 08:00 Pulse 80 07/31/22 08:00 Resp 18 07/31/22 08:00 BP 98/56 L 07/31/22 08:00 Pulse Ox 96 07/31/22 08:00 O2 Del Method 07/31/22 08:00 BMI result Body Mass Index 24.7 Const: Other: Patient awake, alert, oriented x3, no acute distress Resp: Other: Lungs clear to auscultation, normal respiratory effort GI: Other: Abdomen is soft, nontender : Other: Suprapubic tenderness in the groin region bilaterally Extrem: Other: No pedal edema, Objective Data Active Medications Acetaminophen (Acetaminophen 325 Mg Tablet) 650 mg PO Q6H PRN PRN Reason: Pain, Mild (Pain Scale 1-3) Last Admin: 07/31/22 03:57 Dose: 650 mg Documented By: MARIBEL Enoxaparin Sodium (Enoxaparin Sodium 40 Mg/0.4 Ml Syringe) 40 mg SUBCUT Q24H [facility] Last Admin: 07/30/22 23:50 Dose: 40 mg Documented By: MARIBEL Meropenem 1 gm/ Sodium (Chloride) 100 mls @ 200 mls/hr IV Q8H [facility] Last Infusion: 07/31/22 05:51 Dose: 0 mls/hr Documented By: MARIBEL Lactated Ringer's (Lr) 1,000 mls @ 100 mls/hr IVCONT .Q10H [facility] Last Admin: 07/31/22 05:47 Dose: 100 mls/hr Documented By: MARIBEL Ketorolac Tromethamine (Ketorolac Tromethamine 30 Mg/Ml Vial) 30 mg IVPUSH Q6H PRN PRN Reason: Pain, Mild (Pain Scale 1-3) Stop: 08/02/22 22:56 Last Admin: 07/29/22 00:23 Dose: 30 mg Documented By: GLORIA Lactulose (Lactulose 20 Gm/30 Ml Solution) 20 gm PO BID [facility] Last Admin: 07/31/22 08:35 Dose: 20 gm Documented By: GARRISON Melatonin (Melatonin 3 Mg Tablet) 6 mg PO BEDTIME PRN PRN Reason: Insomnia Morphine Sulfate (Morphine Sulfate 4 Mg/Ml Cartridge) 4 mg IVPUSH Q4H PRN; Protocol PRN Reason: Pain, Severe (Pain Scale 7-10) Last Admin: 07/30/22 17:13 Dose: 4 mg Documented By: GARRISON Nicotine (Nicotine 14 Mg Patch.Td24) 14 mg TRANSDERMA DAILY [facility] Last Admin: 07/30/22 08:25 Dose: Not Given Documented By: GARRISON Non-Admin Reason: Patient Refused Ondansetron HCl (Ondansetron Hcl 4 Mg/2 Ml Vial) 4 mg IVPUSH Q8H PRN PRN Reason: Nausea and Vomiting Last Admin: 07/30/22 04:57 Dose: 4 mg Documented By: MARIBEL Oxycodone HCl (Oxycodone Hcl Immed Release 5 Mg Tablet) 5 mg PO Q6H PRN PRN Reason: Pain, Severe (Pain Scale 7-10) Last Admin: 07/29/22 15:04 Dose: 5 mg Documented By: HUSSEIN Pharmacy Consult (Consult Rx Perform Med Rec) 1 each MISCELLANE ONCE PRN PRN Reason: Consult order Polyethylene Glycol (Polyethylene Glycol 3350 17 Gm Powd.Pack) 17 gm PO DAILY PRN PRN Reason: Constipation Senna (Sennosides 8.6 Mg Tablet) 17.2 mg PO BEDTIME PRN PRN Reason: Constipation Sodium Chloride (0.9 % Sodium Chloride Flush 3 Ml Syringe) [address] [facility] [facility] Admin: 07/31/22 08:35 Dose: Not Given Documented By: GARRISON Non-Admin Reason: IV Running Tamsulosin HCl (Tamsulosin Hcl 0.4 Mg Capsule) 0.4 mg PO DAILY [facility] Last Admin: 07/31/22 08:35 Dose: 0.4 mg Documented By: HO.FRANCIM Labs CBC & Chem 7: 07/30/22 08:31 07/30/22 08:31 Labs: Laboratory Results - last 24 hr 07/30/22 07/30/22 07/30/22 08:31 08:31 08:31 MCV 90.0 MCH 29.7 MCHC 33.0 RDW 12.9 Plt Count 227 MPV 11.0 Immature Gran % (Auto) 0.5 H Neut % (Auto) 77.2 H Lymph % (Auto) 11.8 L [place] % (Auto) 9.4 Eos % (Auto) 0.7 Baso % (Auto) 0.4 Lymph # (Auto) 1.8 [place] # (Auto) 1.4 H Eos # (Auto) 0.1 Baso # (Auto) 0.1 Abs Immat Gran (auto) 0.08 H Absolute Neuts (auto) 11.9 H Absolute Nucleated RBC 0.000 Nucleated RBC % (auto) 0.0 Anion Gap 16 Estim Creat Clear Calc 98.2 Estimated GFR > 60 Random Glucose 79 Lactic Acid 1.4 Calcium 8.6 D Microbiology Microbiology Results: Microbiology 07/28/22 19:42 Blood Culture - Preliminary Blood - Venous No growth after 48 hours. 07/28/22 19:42 Blood Culture - Preliminary Blood - Venous No growth after 48 hours. Assessment and Plan (1) Bleeding external hemorrhoids: Status: Acute Plan This is a 47-year-old male with pertinent history of benign prostatic hyperplasia, tobacco use disorder who presents to the emergency department with complaints of testicular pain found to have sepsis secondary to epididymitis # epididymides - had sepsis on admission, that now has stabilized and resolved - secondary to ESBL organism - continue meropenemx 3days, Urology recommended dual coverage, will add TMP SMXx2 - ID and urology follow up # ESBL organism infection - seen on urine cultures done on 07/08 - continue ertapenem, as well as TMP SMX - pre-martinez Cultures from this admission negative to date # Benign prostatic hyperplasia - continue tamsulosin # Hemorrhoids - recommend op follow up with gen surgery for repair evaluation - Hgb stable Full Code DVT pptx Lonenox requires on going hospitalization for treatment of an ESBL positive organism. furthermore, requires ID and urology consult input Quality Stroke Does the patient have a stroke diagnosis?: No VTE Prior VTE?: No VTE Risk Level:: Medical - low VTE Device Contraindication: Treatment Not Indicated VTE Drug Contraindication: N/A - Med Ordered
[2022-07-31] MEDS: Sulfamethox/Trimeth 800/160 TABLET 1 TAB PO ×2 (09:40→20:09)
[2022-07-31] MEDS: Morphine Sulfate 4 MG/ML CARTRIDGE IVPUSH ×2 (13:12→23:28)
[2022-07-31] MEDS: Lactulose 20 GM/30 ML SOLUTION PO (20:09)
[2022-07-31] MEDS: Enoxaparin Sodium 40 MG/0.4 ML SYRINGE SUBCUT (22:39)
[2022-07-31] MEDS: Ketorolac Tromethamine 30 MG/ML VIAL IVPUSH (22:39)
[2022-07-31] MEDS: 0.9 % Sodium Chloride Flush 3 ML SYRINGE IVFLUSH (22:41)
[2022-08-01] MEDS: Lactated Ringers 1,000 ML 100 ML IVCONT (03:27)
[2022-08-01 04:00] VITALS: TEMP 36.2
[2022-08-01 07:03] LABS: Basophils Absolute Auto 0.1 X10*3/uL (0.0-0.2); Basophils Percent Auto 0.7 % (0-2); Eosinophils Absolute Auto 0.1 X10*3/uL (0.0-0.4); Eosinophils Percent Auto 1.4 % (0-4); Hematocrit 35.7 % (42.0-52.0); Hemoglobin 12.1 g/dl (14.0-18.0); Imm Gran Abs Auto 0.11 X10*3/uL (0.00-0.03); Imm Gran Pct Auto 1.2 % (0.0-0.4); Lymphocytes Absolute Auto 2.3 X10*3/uL (1.2-4.9); Lymphocytes Percent Auto 25.4 % (20-40); MANUAL DIFF FLAG SCAN; Mean Corpuscular HGB Conc 33.9 g/dl (31.0-36.0); Mean Corpuscular Volume 88.6 fL (80.0-98.0); Mean Platelet Volume 10.9 fL (9.4-12.4); Monocytes Absolute Auto 1.3 X10*3/uL (0.1-1.2); Monocytes Percent Auto 14.5 % (2-11); Neutrophils Absolute Auto 5.2 x10*3/uL (2.0-8.3); Neutrophils Percent Auto 56.8 % (45-73); Platelet Count 234 X10*3/uL (160-400); Red Blood Count 4.03 X10*6/uL (4.60-5.80); SCAN SMEAR FLAG 1; White Blood Count 9.1 X10*3/uL (4.8-10.8)
[2022-08-01 07:16] LABS: Anion Gap 15 (12-20); Blood Urea Nitrogen 10 mg/dL (9-16); Calcium 8.7 mg/dL (8.4-10.2); Carbon Dioxide 25 mmol/L (22-29); Chloride 104 mmol/L (96-108); Creatinine Clr Calc Pharmacy 89.8; Estimated Glomerular Filt Rate > 60; Glucose Random 87 mg/dL (60-115); Potassium 4.6 mmol/L (3.3-5.1); Sodium 139 mmol/L (135-145)
[2022-08-01 07:56] VITALS: BP 113/69; PULSE 65; RESP 12; TEMP 36.8; O2SAT 96
[2022-08-01 08:18] LABS: SLIDE REVIEW VERIFIED
[2022-08-01] MEDS: Tamsulosin HCL 0.4 MG CAPSULE PO (09:53)
[2022-08-01] MEDS: Sulfamethox/Trimeth 800/160 TABLET 1 TAB PO (09:53)
[2022-08-01] MEDS: 0.9 % Sodium Chloride Flush 3 ML SYRINGE IVFLUSH (09:56)
[2022-08-01] MEDS: Acetaminophen 325 MG TABLET 650 MG PO (10:01)
--- NOTE | 2022-08-01 11:25 | P.DS_ITS ---
DS: Providers Provider Date of Service: 08/01/22 Date of admission: 07/28/22 22:57 Primary care physician: Joni Fallon MD Consults: 07/28/22 22:59 Consult to Infectious Diseases Routine Consulting Provider: Kateryna Sandoval Reason for consultation: Epididymitis. h/o ESBL Has provider been notified: No 07/29/22 08:55 Consult to Urology Routine Consulting Provider: Bao Gates Reason for consultation: testicular pain, hydrocele, epididymitis DS: Diagnosis Discharge Diagnosis (1) Bleeding external hemorrhoids: Status: Acute DS: Summary Hospital Course Hospital Course: Date of Service: 07/28/22 Chief Complaint: Testicular pain This is a 47-year-old male with pertinent history of benign prostatic hyperplasia, tobacco use disorder who presents to the emergency department with complaints of testicular pain.? Patient was recently admitted and discharged on 07/09 for sepsis due to cystitis.? He was initiated on Rocephin at the time of admission and his leukocytosis improved and pain resolved.? He was discharged on Ceftin.? Patient states he completed antibiotic course and his symptoms improved although urine culture from that admission grew ESBL.? Patient states he was doi ng fine until yesterday when he had sudden onset of testicular pain.? He started having intense right testicular pain, radiating to right flank, intermittent and without any relieving factors.? Also has been having hematuria, intermittent.? He noticed his right testicle was swollen and tender.? Patient did have chills at home but no documented temperature.? Did have nausea but denies vomiting.? Karan polk denies chest discomfort, palpitations, shortness of breath.? No penile discharge In the emergency department testicular ultrasound was concerning for right sided epididymitis. Hospital course 47-year-old male with pertinent history of benign prostatic hyperplasia, tobacco use disorder who presents to the emergency department with complaints of testicular pain found to have sepsis secondary to epididymitis # sepsis due to ESBL positive E coli UTI and epididymides, all symptoms of sepsis resolved patient initially treated with meropenem seen by infectious disease and urology did both recommend long-term by mouth antibiotics since patient white cell count has normalized he is being discharged home on Bactrim ds 1 tablet by mouth twice daily for 2 weeks and recommended outpatient follow- up with Urology in 1 week, blood cultures x2 are negative # Benign prostatic hyperplasia recommend to continue tamsulosin # external Hemorrhoids - due to straining and constipation placed on MiraLax 17 g daily recommended drink plenty of fluids take daily salads and use hemorrhoidal cream as directed Time Spent with Patient Time attestation: Total time spent providing and/or coordinating discharge services: Discharge coordination time: Greater than 30 minutes Quality: Safe Use of Opioids Does Pt have an Active Cancer Diagnosis on the Problem List?: No Quality: Stroke Does the patient have a stroke diagnosis?: No Physical Exam Vital Signs: Vital Signs: Last Vital Signs Temp 98.2 F 08/01/22 07:56 Pulse 65 08/01/22 07:56 Resp 12 08/01/22 07:56 BP 113/69 08/01/22 07:56 Pulse Ox 96 08/01/22 07:56 O2 Del Method 08/01/22 07:56 BMI result Body Mass Index 24.7 Const: Other: General resting comfortably in no acute distress. Neck no JVD. CVS regular rate rhythm, Respiratory lungs clear to auscultation, no respiratory distress, no wheeze, no rhonchi. Gastrointestinal abdomen soft, nontender, bowel sounds audible, no guarding , no rigidity. Right testicular swelling and tenderness improved Extremities no edema. Neuro nonfocal Skin no rash DS: Data Data Completed and Pending Labs on day of discharge: Laboratory Results - last 24 hr 08/01/22 08/01/22 06:05 06:05 WBC 9.1 RBC 4.03 L Hgb 12.1 L Hct 35.7 L MCV 88.6 MCH 30.0 MCHC 33.9 RDW 13.0 Plt Count 234 MPV 10.9 Immature Gran % (Auto) 1.2 H Neut % (Auto) 56.8 Lymph % (Auto) 25.4 [place] % (Auto) 14.5 H Eos % (Auto) 1.4 Baso % (Auto) 0.7 Lymph # (Auto) 2.3 [place] # (Auto) 1.3 H Eos # (Auto) 0.1 Baso # (Auto) 0.1 Abs Immat Gran (auto) 0.11 H Absolute Neuts (auto) 5.2 Absolute Nucleated RBC 0.000 Nucleated RBC % (auto) 0.0 Smear Tech's Comments VERIFIED Sodium 139 Potassium 4.6 Chloride 104 Carbon Dioxide 25 Anion Gap 15 BUN 10 Creatinine 0.94 Estim Creat Clear Calc 89.8 Estimated GFR > 60 Random Glucose 87 Calcium 8.7 Preliminary micro results at discharge 07/28/22 19:42 Blood Culture - Preliminary Blood - Venous No growth after 48 hours. 07/28/22 19:42 Blood Culture - Preliminary Blood - Venous No growth after 48 hours. Discharge Plan Discharge Anticipated Discharge Date/Time: 08/01/22 11:18 Patient Disposition: Home, Self-Care Discharge Diagnosis: Sepsis due to ESBL urine infection Epididymitis Benign prostate hyperplasia External hemorrhoids Referrals: Joni Fallon MD [Primary Care Provider] - 1 Week Discharge Medications: New hydrocortisone [Proctozone-HC] 2.5 % Cream With Perineal Applicator 1 appl ME DAILY Qty: 30 0RF polyethylene glycol 3350 17 gram Powder In Packet 17 g PO DAILY PRN (Reason: Constipation) Qty: 30 0RF sulfamethoxazole-trimethoprim 800-160 mg Tablet 1 tab PO Q12H Qty: 28 0RF Continued tamsulosin 0.4 mg capsule 0.4 mg PO DAILY 30 Days Qty: 30 0RF Discharge Orders: Discharge Order (Routine); Ordered 08/01/22 Ordered By: Estefani Stephens Diet: Advance to usual diet Activity on Discharge: As tolerated Stand Alone Forms: Patient Portal Discharge page Care Plan Goals: Sepsis due to ESBL positive E coli, take Bactrim 1 tablet twice daily for 14 days Constipation with hemorrhoids recommend to take MiraLax and add stool softeners if noted to be constipated drink plenty of fluids and take daily salads use hydrocortisone cream for hemorrhoids Outpatient follow-up with urology as planned Health Concerns: Continue medications as above Plan of Treatment: Output patient follow-up with Neurology Dr. Gates in 1 week/as previously planned Assessment: As above
[2022-08-01 11:49] VITALS: BP 103/62; PULSE 95; RESP 12; TEMP 36.8; O2SAT 97
--- NOTE | 2022-08-01 12:55 | MHC.CM.PN ---
PT MEDICALLY CLEARED FOR D/C HOME SELF-CARE, PT TO ARRANGE TRANSPORT
== END 2022-08-01 14:23 | disposition home or self-care (01) | DRG 872 ==
LOC: HO.ED 19:22 → HO.EDOVER 23:05 → HO.S3 07-29 05:46
PROVIDERS: Internal Medicine; Admitting Provider Student in an Organized Health Care Education/Training Program; Emergency Provider Emergency Medicine; PCP Family Medicine; Visit Provider Hospitalist
DX: A41.9 Sepsis, unspecified organism (principal); N39.0 Urinary tract infection, site not specified; Z16.12 Extended spectrum beta lactamase (ESBL) resistance; N45.1 Epididymitis; K64.4 Residual hemorrhoidal skin tags; F17.210 Nicotine dependence, cigarettes, uncomplicated; N40.0 Benign prostatic hyperplasia without lower urinary tract symptoms; B96.20 Unspecified Escherichia coli [E. coli] as the cause of diseases classified elsewhere; Z20.822 Contact with and (suspected) exposure to COVID-19; Z87.440 Personal history of urinary (tract) infections; Z71.6 Tobacco abuse counseling; Z79.899 Other long term (current) drug therapy
CPT/HCPCS: 36415; 72192; 76870; 80048; 80053; 81001; 81003; 83605; 85007; 85025; 85027; 87040; 87491; 87591; 87635; 93975; 99285; J1335; J1650; J1885; J2185; J2270; J2405

== ENCOUNTER → 2022-08-03 15:40 | Outpatient (BNVA) | payer OTHER, SELFPAY | PROVIDERS: PCP Family Medicine; Visit Provider Urology | DX: N50.811 Right testicular pain (principal); N40.0 Benign prostatic hyperplasia without lower urinary tract symptoms; N43.1 Infected hydrocele; R31.0 Gross hematuria; N39.0 Urinary tract infection, site not specified; B96.29 Other Escherichia coli [E. coli] as the cause of diseases classified elsewhere; Z16.12 Extended spectrum beta lactamase (ESBL) resistance | CPT/HCPCS: 51798 ==

== ENCOUNTER 2022-08-12 14:04 | Outpatient (REF) | payer OTHER, SELFPAY ==
[2022-08-12 14:24] LABS: Appearance Urine Turbid; Color Urine Yellow; Glucose Urine UA Negative (Negative); Leukocyte Esterase Urine Trace (Negative); Nitrite Urine Negative (Negative); PH 5.5 (5.0-9.0); Specific Gravity - Urine 1.025 (1.005-1.025); UMIC TRIGGER UA YES; Urine Blood Negative (Negative); Urine Ketones Negative (Negative); Urine Protein Negative (Neg-Trace)
[2022-08-12 14:26] LABS: Bacteria Urine None Seen (None Seen); Hyaline Casts Urine 0-2 /LPF (0-2); RBC Urine 0-2 /HPF (0-2); Squamous Epithelial Cell Urine 0-2 /HPF (0-2); WBC Urine 0-5 /HPF (0-5)
== END 2022-08-12 14:05 | disposition home or self-care (01) ==
LOC: HO.LNP 14:04
PROVIDERS: Visit Provider Family Medicine
DX: Z00.00 Encounter for general adult medical examination without abnormal findings (principal)
CPT/HCPCS: 81001

== ENCOUNTER → 2022-08-22 14:18 | Outpatient (BNVA) | payer OTHER, SELFPAY | PROVIDERS: PCP Family Medicine; Visit Provider Urology | DX: R31.0 Gross hematuria (principal); N50.811 Right testicular pain; N40.0 Benign prostatic hyperplasia without lower urinary tract symptoms; N39.0 Urinary tract infection, site not specified; B96.29 Other Escherichia coli [E. coli] as the cause of diseases classified elsewhere; N43.1 Infected hydrocele; R97.20 Elevated prostate specific antigen [PSA]; Z16.12 Extended spectrum beta lactamase (ESBL) resistance | CPT/HCPCS: 52000 ==

== ENCOUNTER → 2022-12-06 14:14 | Outpatient (BNVA) | payer OTHER, SELFPAY | PROVIDERS: PCP Family Medicine; Visit Provider Physician Assistant | DX: Z13.89 Encounter for screening for other disorder (principal) ==

== ENCOUNTER 2022-12-30 11:04 | Outpatient (REF) | payer OTHER, SELFPAY ==
[2022-12-30 11:23] LABS: MANUAL DIFF FLAG NO
[2022-12-30 12:08] LABS: Basophils Absolute Auto 0.1 X10*3/uL (0.0-0.2); Basophils Percent Auto 0.7 % (0-2); Eosinophils Absolute Auto 0.5 X10*3/uL (0.0-0.4); Eosinophils Percent Auto 4.9 % (0-4); Hematocrit 45.7 % (42.0-52.0); Hemoglobin 15.5 g/dl (14.0-18.0); Imm Gran Abs Auto 0.02 X10*3/uL (0.00-0.03); Imm Gran Pct Auto 0.2 % (0.0-0.4); Lymphocytes Absolute Auto 2.6 X10*3/uL (1.2-4.9); Lymphocytes Percent Auto 28.9 % (20-40); Mean Corpuscular HGB Conc 33.9 g/dl (31.0-36.0); Mean Corpuscular Hemoglobin 29.4 pg (27.0-33.0); Mean Corpuscular Volume 86.7 fL (80.0-98.0); Mean Platelet Volume 11.4 fL (9.4-12.4); Monocytes Absolute Auto 0.6 X10*3/uL (0.1-1.2); Monocytes Percent Auto 6.8 % (2-11); Neutrophils Absolute Auto 5.3 x10*3/uL (2.0-8.3); Neutrophils Percent Auto 58.5 % (45-73); Platelet Count 204 X10*3/uL (160-400); Red Blood Count 5.27 X10*6/uL (4.60-5.80); White Blood Count 9.1 X10*3/uL (4.8-10.8)
[2022-12-30 12:47] LABS: Alanine Aminotransferase 17 U/L (0-40); Albumin Level 4.1 g/dL (3.5-5.0); Alkaline Phosphatase 90 U/L (39-117); Anion Gap 10 (12-20); Aspartate Amino Transferase 22 U/L (5-37); Bilirubin Total 0.6 mg/dL (0.0-1.0); Blood Urea Nitrogen 13 mg/dL (9-16); Calcium 9.3 mg/dL (8.4-10.2); Carbon Dioxide 28 mmol/L (22-29); Chloride 107 mmol/L (96-108); Cholesterol 179 mg/dL; Estimated Glomerular Filt Rate > 60; Glucose Fasting 87 mg/dL (60-99); HDL Cholesterol 38 mg/dL; LDL Cholesterol Calculated 121 mg/dl; Potassium 4.8 mmol/L (3.3-5.1); Sodium 140 mmol/L (135-145); Total Protein 6.9 g/dL (6.5-8.0); Triglycerides 103 mg/dL
[2022-12-30 12:59] LABS: Syphilis Screen Nonreactive (Nonreactive)
[2022-12-30 13:10] LABS: TSH reflex Free T4 0.84 uIU/mL (0.32-4.0)
[2022-12-30 14:11] LABS: Appearance Urine Clear; Color Urine Yellow; Glucose Urine UA Negative (Negative); Leukocyte Esterase Urine Negative (Negative); Nitrite Urine Negative (Negative); PH 5.5 (5.0-9.0); Urine Blood Negative (Negative); Urine Ketones Negative (Negative); Urine Protein Negative (Neg-Trace)
[2022-12-30 15:00] LABS: Creatinine Urine 172.73 mg/dL; Microalbum/Creatinine Ratio Ur 5.2 ug/mg cr
[2023-01-02 08:48] LABS: HBS Num1 0.27 mIU/mL (0-7.99); HBc Num1 0.07 S/CO (0.00-0.79); HBsAGNum1 0.35 S/CO (0.00-0.99); HIV AB/AG Nonreactive (Nonreactive); HIV Num 1 0.07 S/CO (0.00-0.99); Hepatitis B Core Antibody Nonreactive (Nonreactive); Hepatitis B Surface Antigen Negative (Negative); ~HepC Num1 0.18 S/CO (0.00-0.79); ~Hepatitis B Surface Antibody NONREACTIVE (Nonreactive); ~Hepatitis C Antibody Nonreactive (Nonreactive)
== END 2022-12-30 11:05 | disposition home or self-care (01) ==
LOC: HO.LAB 11:04
PROVIDERS: PCP Family Medicine; Visit Provider Family Medicine
DX: Z00.00 Encounter for general adult medical examination without abnormal findings (principal); Z12.5 Encounter for screening for malignant neoplasm of prostate; I10 Essential (primary) hypertension; Z20.2 Contact with and (suspected) exposure to infections with a predominantly sexual mode of transmission
CPT/HCPCS: 36415; 80053; 80061; 81003; 82043; 84153; 84443; 85025; 86704; 86706; 86780; 86803; 87340; 87389

== ENCOUNTER 2023-03-09 13:56 | Outpatient (AMB) | payer OTHER, SELFPAY ==
--- NOTE | 2023-03-09 14:08 | A.OFFVIS_ITS ---
Intake Intake Visit Reasons: Follow up PSA (SET)/PVR Intake Note: Pt presents to the office today for a follow-up PSA/PVR. Urinalysis done. PVR- 32ml Allergies No Known Allergies Allergy (Verified 03/09/23 14:09) HPI HPI Comments History of Present Illness Details Marcellus is a 47-year-old male who presents to the office for PSA follow- up. LV--08/22/22--Marcellus is a 47 year old male who is here for FU for Office cystoscopy He states ?he had blood in his urine, he was seen the ED and started on abx for a urinary infection. ?He also had right side testicular pain. ?He completed the abx and returned to the ED on 07/28/22 due to recurrent blood in the urine and persistent testicular pain. 08/22/2022 Office cystoscopy: ?Bladder wall thickening/trabeculations; small diverticulum posterior wall. ?Prostate was nonobstructive. ?No suspicious bladder lesions. Lab and Imaging: Pertinent Findings: 07/08/22 - E Coli UTI 07/08/22 CT abd/pelvis 07/28/22 Scrotal U/S 07/28/22 - CT pelvis 03/09/23-- He is here today for the PSA follow-up and was seen on August 22, pertinent findings discussed CT abd/pelvis,E Coli UTI, Scrotal U/S, and CT pelvis. Currently the patient was asymptomatic regarding UTI symptoms. The patient was encouraged to drink adequate amount of water daily. Evaluation today-- Blood: negative, leukocytes: negative. Bladder scan PVR: 32 mL. PSA results reviewed--12/30/22--1.80. Plan We will continue to monitor the PSA. PSA blood work prior was ordered. Follow-up 12 months or sooner if needed. [facility] Medical History BPH (benign prostatic hyperplasia) Complicated UTI (urinary tract infection) Sepsis Tooth infection Family History Mother Multiple myeloma HTN (hypertension) Psychosis Social History Household Members: Other Housing: House Do you presently have visiting nurse or other home services: No Alcohol intake: never Patient Tobacco Use Status: Current someday Tobacco user Tobacco use type: Cigarette Second Hand Smoke Exposure: No Substance Use Type: Marijuana service: No Current occupational status: employed Current occupational exposures/hazards: No Cognitive needs: No Hearing needs: No Vision needs: No Review of Systems Const All systems reviewed & are unremarkable except as noted in HPI and below Physical Exam Const General: healthy appearing, no acute distress and well developed Orientation/consciousness: patient oriented x3 HEENT Head: Yes normocephalic and Yes atraumatic Eyes Conjunctivae: conjunctivae normal Neck Neck: Yes normal visual inspection Chest Chest palpation & inspection: normal inspection of the chest Resp Effort & Inspection: normal respiratory effort Cardio Rate: regular rate GI Inspection: Yes normal to inspection Skin General skin exam: no rashes or lesions noted Neuro General: patient oriented x3 Psych Appearance: grossly normal Affect: normal affect Office Procedures Post Void Residual Post Residual Void Post Void Residual (PVR): 32 74001-[id number] Void Residual by ultrasound Results AMB Urinalysis, Automated UA Leukoctes 0 Kathryn/uL Last Edit by Afua Martines MA on 03/09/23 14:15 UA Nitrite Negative Last Edit by Afua Martines MA on 03/09/23 14:15 UA Urobilinogen 0.2 mg/dL Last Edit by Afua Martines MA on 03/09/23 14:15 UA Protein 0 mg/dL Last Edit by Afua Martines MA on 03/09/23 14:15 UA pH 6.0 Last Edit by Afua Martines MA on 03/09/23 14:15 UA Blood 0 Clifton/uL Last Edit by Afua Martines MA on 03/09/23 14:15 UA Specific Raymond 1.010 Last Edit by Afua Martines MA on 03/09/23 14:15 UA Ketone Negative Last Edit by Afua Martines MA on 03/09/23 14:15 UA Bilirubin 0 mg/dL Last Edit by Afua Martines MA on 03/09/23 14:15 UA Glucose 0 mg/dL Last Edit by Afua Martines MA on 03/09/23 14:15 Results Reviewed Results Reviewed: Laboratory Last Values Urine pH (Auto) 6.0 03/09/23 14:13 Specific Raymond (Auto) 1.010 03/09/23 14:13 Urine Protein (Auto) 0 mg/dL 03/09/23 14:13 Glucose (UA)(Auto) 0 mg/dL 03/09/23 14:13 Urine Ketones (Auto) Negative 03/09/23 14:13 Urine Blood (Auto) 0 Clif[place]/uL 03/09/23 14:13 Urine Nitrite (Auto) Negative 03/09/23 14:13 Urine Bilirubin (Auto) 0 mg/dL 03/09/23 14:13 Urine Urobilinogen (Auto) 0.2 mg/dL 03/09/23 14:13 Leukocyte Esterase (Auto) 0 Kathryn/uL 03/09/23 14:13 Assessment & Plan Assessment & Plan (1) Right testicular pain: Code(s): N50.811 - Right testicular pain (2) BPH (benign prostatic hyperplasia): Code(s): N40.0 - Benign prostatic hyperplasia without lower urinary tract symptoms (3) Urinary tract infection due to extended-spectrum beta lactamase (ESBL) producing Escherichia coli: Code(s): N39.0 - Urinary tract infection, site not specified; B96.29 - Other Escherichia coli [E. coli] as the cause of diseases classified elsewhere; Z16.12 - Extended spectrum beta lactamase (ESBL) resistance (4) Hydrocele, infected: Code(s): N43.1 - Infected hydrocele (5) Gross hematuria: Code(s): R31.0 - Gross hematuria (6) Screening PSA (prostate specific antigen): Code(s): Z12.5 - Encounter for screening for malignant neoplasm of prostate Plan We will continue to monitor the PSA. PSA blood work prior was ordered. Follow-up 12 months or sooner if needed. Orders: Orders PSA,Total (Free>4and<10) 10 Months Z12.5 - Encounter for screening for malignant neoplasm of prostate AMB Urinalysis Automated 03/09/23 Z13.9 - Encounter for screening, unspecified AMB Post Void Residual by ultrasound 03/09/23 R31.0 - Gross hematuria Patient Instructions: The patient had an opportunity to ask questions regarding treatment plan. All questions were answered. Imaging, Laboratory studies and physical exam results were discussed and reviewed in detail. No major barriers to understanding were identified. The patient expressed understanding and agreement with the above treatment plan. The patient is aware they should contact our office by phone for worsening of their current condition or the appearance of new symptoms. Compliance is encouraged with any medications and followup testing that is ordered. It is a privilege to be allowed the opportunity to participate in the urologic care of your patient. If you have any questions or concerns regarding treatment for the above conditions please do not hesitate to contact me. The office telephone contact is [phone]. This note is constructed in part using voice recognition software. While every effort has been made to ensure accuracy medical management specialist errors may have been inc luded. Yours sincerely, Gloria Hicks MD Coding Level of Care Code Tele Est Pt Level 3 (85427) Diagnoses Right testicular pain N50.811 BPH (benign prostatic hyperplasia) N40.0 Urinary tract infection due to extended-spectrum beta lactamase (ESBL) producing Escherichia coli N39.0; B96.29; Z16.12 Hydrocele, infected N43.1 Gross hematuria R31.0 Screening PSA (prostate specific antigen) Z12.5 CPT Codes Post Residual Void - PVR CPT Code: 41079-Vhme Void Residual by ultrasound ([id number])
== END 2023-03-09 14:31 | disposition home or self-care (01) ==
LOC: HO.HUSH 13:56
PROVIDERS: PCP Family Medicine; Visit Provider Urology
DX: N50.811 Right testicular pain (principal); N40.0 Benign prostatic hyperplasia without lower urinary tract symptoms; N39.0 Urinary tract infection, site not specified; B96.29 Other Escherichia coli [E. coli] as the cause of diseases classified elsewhere; Z16.12 Extended spectrum beta lactamase (ESBL) resistance; N43.1 Infected hydrocele; R31.0 Gross hematuria; Z12.5 Encounter for screening for malignant neoplasm of prostate
CPT/HCPCS: 99213

== ENCOUNTER → 2023-03-09 13:56 | Outpatient (BNVA) | payer OTHER, SELFPAY | PROVIDERS: PCP Family Medicine; Visit Provider Urology | DX: N50.811 Right testicular pain (principal); Z12.5 Encounter for screening for malignant neoplasm of prostate; N40.0 Benign prostatic hyperplasia without lower urinary tract symptoms; N43.1 Infected hydrocele; R31.0 Gross hematuria; B96.29 Other Escherichia coli [E. coli] as the cause of diseases classified elsewhere; Z16.12 Extended spectrum beta lactamase (ESBL) resistance | CPT/HCPCS: 51798 ==